=== PATIENT | female | born 2000 | race Caucasian/White ===

== ENCOUNTER 2021-04-23 15:39 | Emergency (ER) | payer OTHER, SELFPAY ==
[2021-04-23 17:25] VITALS: BP 116/82; PULSE 64; RESP 18; TEMP 37; O2SAT 98; BMI 22.6
--- NOTE | 2021-04-23 17:38 | HMH.EDUTC ---
[facility] [place] Disposition Clinical Impression: Exposure to COVID-19 virus Disposition: Home, Self-Care Condition on Discharge: Good Instructions: DI for COVID-19 (Suspected or Confirmed ), Coronavirus Disease 2019, Preventing the Spread of Coronavirus Discharge Instructions Additional Instructions: *Monitor Temp, Over the counter Motrin or Tylenol as directed/as needed Tylenol every 4 hours and Motrin every 6 hours (as long as your family doctor has told you that you can take it) for fever or pain. and straight to ER if unable to lower temp less than 101.0 after medication given Follow up IMMEDIATELY for new or worsening symptoms or no Noticeable improvement over the next 48-72 hours. 911 for difficulty breathing or swallowing You were tested for today for COVID19 your test result should be back in the next 24-48 hours, you may call to the [facility] to see if your test results are back in the next 48 hours [phone] [facility] hours are 9am-9pm You was given a handout with instructions for Self Quarantine and Self isolation for while you wait on test results and what to do if they are positive If you are positive the Health Dept will be contacting you also Make sure to take your Vitamins Vit. C Vit D and Zinc if you can take them Referrals: Provider,Referral, MD [Primary Care Provider] - As needed Forms: Work/School Release Time of Disposition: 17:42 Medical Decision Making - Lucho Inquiry Pt receiving controlled substance: No Lucho was queried for this patient: No Vital Signs: 04/23/21 17:25 Temperature 98.6 F Temperature Source Oral Pulse Rate [Left Radial] 64 Respiratory Rate 18 Blood Pressure [Left Arm] 116/82 Blood Pressure Mean [Left Arm] 93 Blood Pressure Source [Left Arm] Automatic Cuff Blood Pressure Position [Left Arm] Sitting 02 Sat by Pulse Oximetry 98 Oxygen Delivery Method Room Air Orders (Tests/Meds): ORDERS Category Date Time Status Covid-19 Nasal PCR ([facility]) Routine Lab 04/23/21 17:15 Ordered [facility] [place] HPI - General Stated complaint: covid test Time Seen by Provider: 04/23/21 17:38 Mode of Arrival: Ambulatory Source of Information: Patient Limitations: No Limitations Description of Symptoms (Recalled from Triage Doc. by RN): pt requesting a covid test, possibly exposed by a friend, reports headache x2 days HEENT Symptoms (Recalled from RN notes): No Resp Symptoms (Recalled from RN notes): No Skin Symptoms (Recalled from RN notes): No MS Symptoms (Recalled from RN notes): No Functional Status (Recalled from RN notes): n/a - History of Present Illness Provider Complaint: Patient states that she wants to get tested for COVID state that she was around a friend last week that she thinks may have had COVID state that she has been having body aches and headache on and off for a week Denies any other symptoms - Related Data Home Medications Medication Instructions Recorded Confirmed No Known Home Medications 06/28/20 06/28/20 Allergies Allergy/AdvReac Type Severity Reaction Status Date / Time No Known Allergies Allergy Verified 06/28/20 07:02 - Worker's Comp Is this a Worker's Comp case?: No Is this an H Worker's Comp?: No [facility] History - Hepatitis A Screen Drug use history?: No High risk sexual behaviors?: No History of sexually transmitted infection?: No Currently employed?: No Childcare worker?: No Do you have indoor plumbing?: Yes Do you have electricity?: Yes Attestation statement:: This patient has been screened for Hepatitis A risk factors. I have reviewed the patient's past medical history: Yes ROS Obtained: Yes All systems reviewed & no additional complaints, Yes Systems reviewed as appropriate & no additional complaints - Constitutional Constitutional: Reports system reviewed and no additional complaints, except as docu, Reports body ache, Denies fever(s), Reports headache(s) - Eyes Eyes: Reports system reviewed and no additional complaints, except as
[2021-04-23 17:49] VITALS: BP 0/0; PULSE 0; RESP 0; TEMP -17.7; TEMP 0
--- NOTE | 2021-04-24 20:06 | PC.NURSE ---
Patient aware of positive COVID result
== END 2021-04-23 17:57 | disposition home or self-care (01) ==
PROVIDERS: Emergency Provider Nurse Practitioner
DX: U07.1 COVID-19 (principal)
CPT/HCPCS: 99202; G0463; U0003

== ENCOUNTER → 2021-11-05 14:21 | Outpatient (CLI) | payer OTHER, SELFPAY ==
--- NOTE | 2021-11-05 14:21 | US_ITS ---
FINAL REPORT CLINICAL HISTORY: US OB Before 14 wks for DATES and Confirmation FINDINGS: Sonographic images of the pelvis were obtained. A single, living intrauterine is noted. A yolk sac is present. [place] to rump length measures 4.6 cm which corresponds to 11 weeks 3 days gestation. Heartbeat is identified and measures 167 beats per minute. The right ovary is within normal limits. The left ovary is within normal limits. 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 IMPRESSION: Single, living, intrauterine gestation with 14 weeks 6 days gestational age and average ultrasound age of 11 weeks 4 days. 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 Reviewed, Interpreted and Dictated by Tom Bustamante III, MD Transcribed by Claribel Roth Authenticated by Tom Bustamante III, MD on 11/05/2021 04:49:08 PM [facility]
== END ==
PROVIDERS: PCP Emergency Medicine; Visit Provider Nurse Practitioner Obstetrics & Gynecology
DX: O26.841 Uterine size-date discrepancy, first trimester (principal)
CPT/HCPCS: 76801

== ENCOUNTER → 2021-11-27 10:03 | Outpatient (CLI) | payer OTHER, SELFPAY ==
[2021-11-27 11:41] LABS: Basophils # 0.1 K/mm3 (0-0.2); Basophils % 0.6 % (0.1-2.0); Eosinophils # 0.2 K/mm3 (0.0-0.4); Eosinophils % 2.6 % (0.1-12.0); Hematocrit 35.6 % (37.0-47.0); Hemoglobin 11.9 g/dL (12.2-16.2); Lymphocytes # 1.8 K/mm3 (0.7-4.5); Lymphocytes % 20.9 % (10-50); Mean Corpuscular HGB Conc 33.5 g/dL (31.8-35.4); Mean Corpuscular Hemoglobin 31.7 pg (27.0-31.2); Mean Corpuscular Volume 94.6 fl (81-99); Mean Platelet Volume 8.2 fl (7.4-10.4); Monocytes # 0.4 K/mm3 (0.1-1.0); Monocytes % 4.4 % (1.7-9.3); Neutrophils # 6.1 K/mm3 (1.8-7.8); Neutrophils % 71.5 % (37.0-80.0); Platelet Count 277 K/mm3 (142-424); Red Blood Count 3.76 M/mm3 (4.20-5.40); Red Cell Distribution Width 13.7 % (11.5-17.5); White Blood Count 8.5 K/mm3 (4.8-10.8)
[2021-11-28 06:13] LABS: HIV Screen 4th Generation wRfx Non Reactive (Non Reactive)
[2021-11-28 07:14] LABS: Hepatitis B Surface Antigen Negative (Negative); Hepatitis C Antibody <0.1 s/co ratio (0.0-0.9)
[2021-11-28 08:24] LABS: HSV 2 IgG, Type Spec <0.91 index (0.00-0.90); Rubella Antibodies, IgG 1.22 index (Immune >0.99)
[2021-11-28 11:34] LABS: Rapid Plasma Reagin Ab Titer Non Reactive (NonRea<1:1)
== END ==
PROVIDERS: PCP Emergency Medicine; Visit Provider Nurse Practitioner Obstetrics & Gynecology
DX: Z34.90 Encounter for supervision of normal pregnancy, unspecified, unspecified trimester (principal)
CPT/HCPCS: 36415; 85025; 86592; 86695; 86703; 86762; 86790; 86850; 87340; 87380; G0432

== ENCOUNTER → 2021-12-09 13:04 | Outpatient (CLI) | payer OTHER, SELFPAY | PROVIDERS: Visit Provider Nurse Practitioner Obstetrics & Gynecology | DX: Z31.430 Encounter of female for testing for genetic disease carrier status for procreative management (principal); Z36.0 Encounter for antenatal screening for chromosomal anomalies; O28.3 Abnormal ultrasonic finding on antenatal screening of mother | CPT/HCPCS: 36415 ==

== ENCOUNTER → 2022-01-08 09:18 | Outpatient (CLI) | payer OTHER, SELFPAY ==
--- NOTE | 2022-01-08 09:18 | US_ITS ---
FINAL REPORT CLINICAL HISTORY: OB US Complete 20wk+ Anatomy Scan FINDINGS: There is a single live intrauterine gestation. Presentation is cephalic. The cervix is closed and measures 3 cm. Placenta is anterior, grade 1. movement is noted. Heart rate is measured at 143 beats per minute. Three-vessel cord with satisfactory umbilical cord insertion. Four-chamber heart is noted. brain and ventricles are unremarkable. Chest and diaphragm are unremarkable. ABDOMEN: Both kidneys are unremarkable. Stomach is unremarkable. SPINE: No anomalies identified. AMNIOTIC FLUID: Appropriate amount. MEASUREMENTS: ULTRASOUND AGE: 20 weeks 5 days. GESTATION AGE: 20 weeks 5 days. ESTIMATED WEIGHT: 362 g GROWTH PERCENTILE: 36% BPD: 5 cm corresponding to 21 weeks 2 days. OFD: 6.1 cm corresponding to 20 weeks 5 days. HC: 17.6 cm corresponding to 20 weeks 1 days. AC: 15.7 cm corresponding to 21 weeks 0 days. FL: 3.3 cm corresponding to 20 weeks 2 days. CEREBELLUM: 2.1 cm corresponding to 21 weeks 2 days. HUMERUS: 3.1 cm corresponding to 20 weeks 4 days. HC/AC: 1.12 CI: 82% FL/BPD: 65% FL/AC: 21% IMPRESSION: Single living IUP with an ultrasound age of 20 weeks 5 days. No anomalies noted. Reviewed, Interpreted and Dictated by Tom Bustamante III, MD Transcribed by Denise Barron Authenticated by Tom Bustamante III, MD on 01/08/2022 01:23:49 PM [facility]
== END ==
PROVIDERS: PCP Emergency Medicine; Visit Provider Nurse Practitioner Obstetrics & Gynecology
DX: Z36.0 Encounter for antenatal screening for chromosomal anomalies (principal)
CPT/HCPCS: 76811

== ENCOUNTER → 2022-04-23 09:54 | Outpatient (CLI) | payer OTHER, SELFPAY ==
[2022-04-23 11:04] LABS: Glucose,Fasting 83 mg/dl (74-100)
[2022-04-23 12:19] LABS: Glucose 1 Hour 83 mg/dL (74-100)
== END ==
PROVIDERS: Nurse Practitioner Obstetrics & Gynecology; PCP Emergency Medicine; Visit Provider Obstetrics & Gynecology
DX: Z34.90 Encounter for supervision of normal pregnancy, unspecified, unspecified trimester (principal); Z3A.24 24 weeks gestation of pregnancy
CPT/HCPCS: 36415; 82951

== ENCOUNTER → 2022-04-27 13:16 | Outpatient (CLI) | payer OTHER, SELFPAY ==
--- NOTE | 2022-04-27 13:19 | US_ITS ---
FINAL REPORT CLINICAL HISTORY: sga FINDINGS: There is a single live intrauterine gestation. Presentation is cephalic. Placenta is fundal/left lateral grade 2. movement is noted. Amniotic fluid measures 11 cm which is normal. Heart rate is detected at 155 beats per minute. MEASUREMENTS: ULTRASOUND AGE: 34 weeks 2 days. GESTATION AGE: 34 weeks 2 days. ESTIMATED WEIGHT: 2374 g GROWTH PERCENTILE: LMP percentile 9 % BPD: 8.50 cm corresponding to 34 weeks 2 days. OFD: 10.72 cm corresponding to 34 weeks 1 day. HC: 30.4 cm corresponding to 33 weeks 6 days. AC: 30.3 cm corresponding to 34 weeks 2 days. FL: 6.65 cm corresponding to 34 weeks days. HC/AC: 0.00 CI: 79% FL/BPD: 78% FL/AC: 22% Biophysical profile score: Breathin Movement: 2 Tone: 2 Fluid volume: 2 Biophysical profile score is 8/8 IMPRESSION: Single living IUP with an ultrasound age of 34 weeks 2 days. Biophysical profile score is 8/8. Reviewed, Interpreted and Dictated by Tom Bustamante III, MD Transcribed by Doreen Clemons Authenticated and [facility]
== END ==
PROVIDERS: PCP Emergency Medicine; Visit Provider Nurse Practitioner Obstetrics & Gynecology
DX: O36.5990 Maternal care for other known or suspected poor fetal growth, unspecified trimester, not applicable or unspecified (principal)
CPT/HCPCS: 76816; 76819; 76820

== ENCOUNTER → 2022-04-28 06:24 | Outpatient (CLI) | payer OTHER, SELFPAY | PROVIDERS: Visit Provider Nurse Practitioner Obstetrics & Gynecology | DX: Z34.90 Encounter for supervision of normal pregnancy, unspecified, unspecified trimester (principal); Z3A.35 35 weeks gestation of pregnancy | CPT/HCPCS: 86403 ==

== ENCOUNTER 2022-05-11 05:16 | Inpatient (IN) | payer OTHER, SELFPAY ==
[2022-05-11] VITALS (47 sets, daily range): BP systolic 50–178; BP diastolic 27–124; PULSE 55–169; RESP 16–20; TEMP 35.9–43; O2SAT 96–100; BMI 26.9
[2022-05-11 06:07] LABS: Microscopic, Urine URINE MICROSCOPIC (MICROSCOPIC)
[2022-05-11 06:07] LABS: Coronavirus 19, PCR Not Detected (NotDetected); Influenza A, PCR Not Detected (NotDetected); Influenza B, PCR Not Detected (NotDetected)
[2022-05-11 06:16] LABS: Appearance,Urine CLEAR (Clear); Bilirubin,Urine Negative (Negative); Blood, Urine Negative (Negative); Color,Urine YELLOW (Yellow); Glucose,Urine (UA) Negative (Negative); Ketones,Urine Negative (Negative); Leukocyte Esterase,Urine 3+ (Negative); Nitrate,Urine Negative (Negative); Protein,Urine Negative (Negative); Specific Gravity, Urine 1.015 (1.005-1.030); Urobilinogen,Urine 0.2 EU/dl (0.2)
[2022-05-11 06:16] LABS: Basophils # 0.1 K/mm3 (0-0.2); Basophils % 0.9 % (0.1-2.0); Eosinophils # 0.2 K/mm3 (0.0-0.4); Eosinophils % 1.6 % (0.1-12.0); Hematocrit 36.9 % (37.0-47.0); Lymphocytes # 2.6 K/mm3 (0.7-4.5); Lymphocytes % 22.5 % (10-50); Mean Corpuscular HGB Conc 32.5 g/dL (31.8-35.4); Mean Corpuscular Hemoglobin 32.4 pg (27.0-31.2); Mean Corpuscular Volume 99.7 fl (81-99); Mean Platelet Volume 8.4 fl (7.4-10.4); Monocytes # 0.7 K/mm3 (0.1-1.0); Neutrophils # 7.9 K/mm3 (1.8-7.8); Neutrophils % 69.1 % (37.0-80.0); Platelet Count 243 K/mm3 (142-424); Red Cell Distribution Width 13.7 % (11.5-17.5); White Blood Count 11.4 K/mm3 (4.8-10.8)
[2022-05-11 06:45] LABS: Bacteria,Urine Trace /lpf
[2022-05-11 06:56] LABS: Amphetamine/Metha Screen,Urine Negative ng/ml (<1000)
[2022-05-11 06:57] LABS: Barbiturates Screen,Urine Negative ng/ml (<200); Benzodiazepines Screen,Urine Negative ng/ml (<200)
[2022-05-11 07:02] LABS: Methadone Screen,Urine Negative ng/ml (<300)
[2022-05-11 07:03] LABS: Cannabinoid Screen,Urine Negative ng/ml (<50); Cocaine Screen,Urine Negative ng/ml (<300)
[2022-05-11 07:04] LABS: Opiate Screen,Urine Negative ng/ml (<300); Phencyclidine Screen,Urine Negative ng/ml (<25)
--- NOTE | 2022-05-11 08:34 | EXP.HP ---
History of Present Illness *Admission Date: 05/11/22 *Reason for visit:: Term , IUGR *History of present illness: She is a 22-year-old 4 para 2 aborta 1 who is 38+ weeks gestational age. She was seen last week and ultrasound showed that the baby was less than the 10th centile. As result of that we elected to induce her labor at 38 weeks. PFSH PFS Surgical History (Updated 05/11/22 @ 08:37 by Lizbet Sosa RN) Hx of dilation and curettage Social History Smoking Status: Current every day smoker tobacco type: cigarettes alcohol intake: current substance use type: marijuana current occupational status: employed Travel in the last 8 weeks: None Review of Systems Review of Systems Review of systems:: pertinent systems reviewed and negative unless documented below Meds Home Medications and Allergies Home Medications Medication Instructions Recorded Confirmed Type ferrous sulfate 325 mg (65 mg 325 mg PO DAILY Supplement 05/11/22 05/11/22 History iron) tablet prenat.vits,anshul,bjz-jlkh-plwtt 1 tab PO DAILY Supplement 05/11/22 05/11/22 History New Prescriptions to Start Prescriptions: Allergies Allergy/AdvReac Type Severity Reaction Status Date / Time No Known Allergies Allergy Verified 05/06/22 10:00 Exam Data for Last 24 hours Vital signs and Labs for Last 24 Hours: Temp Pulse Resp BP Pulse Ox 97.8 F 74 16 111/71 97 05/11/22 07:32 05/11/22 07:32 05/11/22 07:32 05/11/22 07:32 05/11/22 07:32 Laboratory Results - last 24 hr 05/11/22 05:45: Urine Color Yellow, Urine Appearance Clear, Urine pH 7.0, Ur Specific [place] 1.015, Urine Protein Negative, Urine Glucose (UA) Negative, Urine Ketones Negative, Urine Blood Negative, Urine Nitrate Negative, Urine Bilirubin Negative, Urine Urobilinogen 0.2, Ur Leukocyte Esterase 3+ A, Urine RBC None, Urine WBC 3-5, Ur Squamous Epith Cells 3-5, Urine Bacteria Trace 05/11/22 05:45: Urine Opiates Screen Negative, Urine Methadone Screen Negative, Ur Barbituates Screen Negative, Ur Phencyclidine Scrn Negative, Ur Amphetamines Screen Negative, U Benzodiazepines Scrn Negative, Urine Cocaine Screen Negative, U Marijuana (THC) Screen Negative 05/11/22 05:50: SARS-CoV-2 (PCR) Not detected, Influenza A Untype (PCR) Not detected, Influenza Type B (PCR) Not detected 05/11/22 05:55: WBC 11.4 H, RBC 3.70 L, Hgb 12.0 L, Hct 36.9 L, MCV 99.7 H, MCH 32.4 H, MCHC 32.5, RDW 13.7, Plt Count 243, MPV 8.4, Neut % (Auto) 69.1, Lymph % (Auto) 22.5, Bartholomew % (Auto) 6.0, Eos % (Auto) 1.6, Baso % (Auto) 0.9, Neut # (Auto) 7.9 H, Lymph # (Auto) 2.6, Bartholomew # (Auto) 0.7, Eos # (Auto) 0.2, Baso # (Auto) 0.1 05/11/22 05:55: Blood Type A Positive, Antibody Screen Negative I & O for Last 24 hours: Intake & Output 05/08/22 05/09/22 05/10/22 05/11/22 11:59 11:59 11:59 11:59 Weight 152 lb Constitutional Constitutional: no acute distress *Routine HEENT Exam Head: Present normocephalic Eye: Present EOMI and PERRL ENT: Present mucous membranes moist *Routine Neck Exam Neck: Present supple and full ROM *Routine Respiratory Exam Respiratory: Absent accessory muscle use (good air entry bilaterally), wheezes or crackles *Routine Cardiovascular Exam Cardiovascular: Present RRR; Absent murmur *Routine Abdominal Exam Abdominal: Present soft and normoactive bowel sounds; Absent tenderness, rebound, guarding or mass *Routine Rectal Exam Rectal:: deferred *Routine Genitalia Exam Genitalia:: normal female Comment:: Cervix is 3 cm 75% -2 *Routine Extremities Exam Extremities: Present full ROM; Absent cyanosis, edema or calf tenderness *Routine Skin Exam Skin: Present intact (good color) *Routine Neurological Exam Neurological: Present alert and oriented X3 Routine Psychiatric Exam Psychiatric: Present normal affect Detailed Rectal Exam Patient deferred: visual exam and digital exam Detailed Exam Patie
--- NOTE | 2022-05-11 08:37 | EXP.LABOR.NO ---
Labor Note Subjective: Date: 05/11/22 Time: 08:37 regular contraction Objective: NST:: Reactive Contractions:: every 2-3 minutes Cervical Dilation:: 3 Effacement:: 75% Station: -2 Membranes: artificially ruptured Comment:: I ruptured her membranes and there is clear fluid. Fetus: Monitoring?: Yes monitoring type:: Internal and External Comment:: I inserted an IUPC. Assessment: Labor progressing?: Yes Cephalopelvic disproportion?: No All Active Problems (Updated 05/06/22 @ 11:16 by Cesar Pride MD) (Acute) Asthma (Acute) Tobacco use (Acute) IUGR (intrauterine growth restriction) affecting care of mother (Acute) Oligohydramnios antepartum (Acute) Plan: Anesthesia for epidural?: Yes Continue to labor down?: Yes Plan for ?: No Continue to monitor?: Yes Start pushing?: No
--- NOTE | 2022-05-11 09:18 | ECG_ITS ---
APPROVED REPORT Exam: Resting ECG HR:62 bpm ECG Measurements Heart Rate 62 AXES MA 187 P 55 QRSd 89 QRS 75 QT 415 T 64 QTc 419 Conclusion SINUS RHYTHM MODERATE ST DEPRESSION [0.05+ mV ST DEPRESSION] ABNORMAL ECG UNCONFIRMED REPORT Electronically signed by : Darius Knapp MD 05/11/2022 22:34:43
--- NOTE | 2022-05-11 11:01 | EXP.DN ---
Delivery Note Delivery Date:: 05/11/22 Delivery Time:: 10:53 Anesthesia Type: Epidural Was labor medically induced?: Yes Induction method: per pitocin protocol Gestational age (weeks): 38 delivered prior to 39 weeks?: Yes Justification for early elective delivery:: IUGR and Oligohydraminos Gender: Female at 1 minute: 7 at 5 minutes: 9 Delivery Procedure:: She is a 22-year-old 3 para 2 who was 38 weeks gestational age with a small for gestational age . As result of that she is brought in for induction of labor at term. She was started on IV oxytocin had her membranes ruptured. Under labor epidural she progressed to full dilation. She delivered with the assistance of a vacuum a liveborn female child at 10:53 AM in the morning of May 11, 2022. She was having some prolonged deceleration so elected to place a vacuum on the baby's head. Using 1 long gentle pull I was able to easily deliver the head. There were no nuchal cords. The anterior shoulder then delivered easily followed by the rest of the infant's body atraumatically. The baby was vigorous. We allowed the cord to continue to pulsate for approximately 1 minute. The cord is then doubly clamped and cut and the was placed on the mother's abdomen for further care. The nurses assigned Apgars of 7 at 1 minute and 9 at 5 minutes. We then obtained cord blood. I attempted to deliver the cord and it was extremely thin and tore. There were no vaginal or perineal lacerations. She received IV oxytocin and we waited the delivery of the placenta. I will dictate the rest of the delivery of the placenta and case history in my operative note. Placental Delivery Description: Placenta Accreta
--- NOTE | 2022-05-11 12:07 | ECG_ITS ---
APPROVED REPORT Exam: Resting ECG HR:121 bpm ECG Measurements Heart Rate 121 AXES [place] 162 P 53 QRSd 70 QRS 77 QT 295 T 94 QTc 367 Conclusion SINUS TACHYCARDIA LOW QRS VOLTAGE IN PRECORDIAL LEADS [QRS DEFLECTION < 1.0 mV IN CHEST LEADS] MINIMAL ST DEPRESSION [0.025+ mV ST DEPRESSION] ABNORMAL RHYTHM ECG INTERPRETATION BASED ON A DEFAULT AGE OF 40 YEARS UNCONFIRMED REPORT Electronically signed by : Darius Knapp MD 05/11/2022 22:34:19
[2022-05-11 12:19] LABS: Hematocrit 36.3 % (37.0-47.0); Hemoglobin 11.8 g/dL (12.2-16.2)
--- NOTE | 2022-05-11 12:49 | EXP.ANES.CKL ---
[facility] Surgical History (Updated 05/11/22 @ 08:37 by Lizbet Sosa RN) Hx of dilation and curettage Social History (Updated 05/11/22 @ 08:39 by Lizbet Sosa RN) Smoking Status: Current every day smoker tobacco type: cigarettes packs per day: 1 alcohol intake: current substance use type: marijuana current occupational status: employed Travel in the last 8 weeks: None [facility] Anesthesia Checklist Patient Identification Patient Identification: Verbal (Name & ) Structural Data Admitted From: Inpatient Planned Operative Procedure/s: labor epidural Consent for Planned Operative Procedure(s) Verified: Yes Airway Assessment C-Spine Mobility Assessed: Yes TMJ Mobility Assessed: Yes Dentition: Poor Dentition Neurological Assessment Level of Consciousness: Awake, Alert and Appropriate Anesthesia Plan Anesthesia Risk discussed: Yes Anesthesia Plan: Verified ASA Class: II Anesthesia Type: Epidural
--- NOTE | 2022-05-11 13:13 | EXP.CARD.CON ---
History of Present Illness History of Present Illness Consult date: 05/11/22 Requesting physician: Cesar Pride Chief complaint: Post shoulder pain, abnormal EKG, Hypotension Additional Medical History:: 1. Tobacco use 2. Use of marijuana 3. 4, para 3 abor 1 History of present illness: 22-year-old white female with history of oligohydramnios antepartum presented for planned induction and delivery with delivery of healthy baby girl. Patient developed left shoulder discomfort along with hypotension prompting call to cardiology for evaluation of abnormal EKG. Blood pressure upon arrival was noted to be in the 80-90 mmHg systolic range with bedside echo performed by ER MD showing preserved ejection fraction with flattening of the interventricular septum. Central line in the right femoral artery was placed for additional IV access. Copious IV fluids along with 4 units of blood were infused rapidly with IV atropine, IV Lobo-Synephrine for blood pressure support. Blood pressure was stabilized with hemoglobin noted to have risen from 8.1-11 after the 4 units of blood. Blood pressure then again began to drop again and decision was made to take patient to surgery for further evaluation. Placenta was noted to still be inside the uterus. Oxygen saturation remained normal throughout the events noted above. Dr. Echeverria, Dr. Pride and ER MD ( Jni Godo MD) were present and attending to patient. Please see notes for rapid response. [facility] Surgical History (Updated 05/11/22 @ 08:37 by Lizbet Sosa RN) Hx of dilation and curettage Social History (Updated 05/11/22 @ 08:39 by Lizbet Sosa RN) Smoking Status: Current every day smoker tobacco type: cigarettes packs per day: 1 alcohol intake: current substance use type: marijuana current occupational status: employed Travel in the last 8 weeks: None Review of Systems Review of Systems Review of systems:: unable to obtain Exam Data for Last 24 hours Vital signs and Labs for Last 24 Hours: Temp Pulse Resp BP Pulse Ox 97.8 F 74 16 111/71 97 05/11/22 07:32 05/11/22 07:32 05/11/22 07:32 05/11/22 07:32 05/11/22 07:32 Laboratory Results - last 24 hr 05/11/22 05:45: Urine Color Yellow, Urine Appearance Clear, Urine pH 7.0, Ur Specific [place] 1.015, Urine Protein Negative, Urine Glucose (UA) Negative, Urine Ketones Negative, Urine Blood Negative, Urine Nitrate Negative, Urine Bilirubin Negative, Urine Urobilinogen 0.2, Ur Leukocyte Esterase 3+ A, Urine RBC None, Urine WBC 3-5, Ur Squamous Epith Cells 3-5, Urine Bacteria Trace 05/11/22 05:45: Urine Opiates Screen Negative, Urine Methadone Screen Negative, Ur Barbituates Screen Negative, Ur Phencyclidine Scrn Negative, Ur Amphetamines Screen Negative, U Benzodiazepines Scrn Negative, Urine Cocaine Screen Negative, U Marijuana (THC) Screen Negative 05/11/22 05:50: SARS-CoV-2 (PCR) Not detected, Influenza A Untype (PCR) Not detected, Influenza Type B (PCR) Not detected 05/11/22 05:55: WBC 11.4 H, RBC 3.70 L, Hgb 12.0 L, Hct 36.9 L, MCV 99.7 H, MCH 32.4 H, MCHC 32.5, RDW 13.7, Plt Count 243, MPV 8.4, Neut % (Auto) 69.1, Lymph % (Auto) 22.5, [place] % (Auto) 6.0, Eos % (Auto) 1.6, Baso % (Auto) 0.9, Neut # (Auto) 7.9 H, Lymph # (Auto) 2.6, [place] # (Auto) 0.7, Eos # (Auto) 0.2, Baso # (Auto) 0.1 05/11/22 05:55: Blood Type A Positive, Antibody Screen Negative, Crossmatch (AHG) See Detail 05/11/22 12:12: Hgb 11.8 L, Hct 36.3 L I & O for Last 24 hours: Intake & Output 05/09/22 05/10/22 05/11/22 05/12/22 11:59 11:59 11:59 11:59 Weight 152 lb Constitutional Constitutional: somnolent *Routine Respiratory Exam Respiratory: Present decreased breath sounds *Routine Cardiovascular Exam Cardiovascular: Present RRR and tachycardia *Routine Abdominal Exam Abdominal: Present distended *Routine Neurological Exam Comments: minimally alert initially with decline during hypotensive episodes. Meds
--- NOTE | 2022-05-11 13:34 | XR_ITS ---
FINAL REPORT CLINICAL HISTORY: R/O FOREIGN BODY FINDINGS: SINGLE VIEW ABDOMEN A single view of the abdomen was obtained. There is a nonobstructive bowel gas pattern. There are no abnormally dilated loops of small bowel. No abnormal calcifications are identified. A presumed right femoral deep line and bladder catheter present. IMPRESSION: Nonobstructive bowel gas pattern. Presumed right femoral deep line and bladder catheter in place. Otherwise, no foreign body identified. Reviewed, Interpreted and Dictated by Tom Bustamante III, MD Transcribed by Hattie Elaine Authenticated and [facility]
--- NOTE | 2022-05-11 14:13 | EXP.OP.NOTE ---
Date of procedure: 05/11/22 Pre-op Diagnosis:: Intra-abdominal bleeding Post-op Diagnosis:: Bicornuate uterus, placenta accreta, bleeding from uterine cornua Procedure performed:: Exploratory laparotomy, total abdominal hysterectomy Surgeon:: Cesar Pride MD Hangersmith(s):: Dr. Benson LICENSED ACUPUNCTURIST:: Galo Whiting Anesthesia: GETA Estimated blood loss (mL): 3,500 Clinical Note:: She is a 22-year-old 3 para 2 who is . She delivered and we were awaiting the placenta to deliver. I could not feel the placenta when I examined her from the vagina.. The cord had torn off from the placenta. The cord itself was extremely small and thin. She then had an episode of low blood pressure and responded to fluids. She subsequently then began to keep her blood pressure low and did not respond to fluids. We had Dr. Echeverria come up from the [facility] as well as our ER doc. At that time it was not clear whether she had a possible pulmonary embolus, amniotic fluid embolus or intra-abdominal bleeding. We initially did an abdominal ultrasound and could not see any fluid in the abdominal cavity. We also looked up around the liver and there was no fluid. Her initial hemoglobin was 11.1 and post it was 8.1. She had received a considerable amount of IV fluids and we were not sure whether this was active bleeding internally or possibly hemodilution. She continued to be observed we gave her a total of 4 units of blood and we then repeated her ultrasound and it showed that there was fluid in the abdominal cavity as well as fluid up around her liver. Her posttransfusion hemoglobin was 11.1. As result of the abdominal fluid and suspicion of abdominal bleeding we took her to the operating room for an exploratory laparotomy. During the period we were monitoring her blood pressures, we had an EKG that showed some possible ST changes but Dr. Echeverria felt that it was not abnormal.. She really did not respond with tachycardia with her drop in blood pressure. Her heart rate in fact remained in the 50s and 60s despite the fact that her blood pressure was in the 60s to 80s over 40s to 50s. As result of the continued low blood pressure and the fact that we felt that there was suspected internal bleeding we took her to the operating room for a exploratory laparotomy. I discussed this with her mother prior to the surgery. Operative findings:: She had about 3 L of blood in her belly when we initially went into the abdominal cavity. The uterus was bicornuate and the left side of the horn was completely open at the top of the horn. It looked like there was an accreta or possibly percreta with active bleeding from that particular area of the uterine serosa. The opening at the top of the horn was approximately 10 cm across and there was no serosa covering this. The placenta was visible protruding through the serosa of the uterus. The placenta was in that horn. The ovaries and tubes appeared normal. The rest of the abdomen and pelvis appeared normal. Operative note:: She was taken the operating room where general anesthesia was found to be adequate. She was prepped draped normal sterile fashion in the supine position. Patsrana catheter is in the bladder. A midline incision was made with knife and carried through to the underlying layer of fascia with cautery. I then opened up the midline fascia with cautery and extended this superiorly inferiorly. The rectus muscle was then midline and the peritoneum identified. This was tented up and entered sharply with Metzenbaum scissors. This incision was then extended superiorly and inferiorly with cautery. There was copious blood in the abdominal cavity and we soaked up this blood with sponges as well as suction. We then exteriorized the uterus and it was found that the left horn of the uterus had completely eroded through with the placenta. It was actively bleeding. As result of this I took a free tie and tied
--- NOTE | 2022-05-11 14:26 | P.PNANES_ITS ---
[facility] Anesthesia Record Part I Anesthesia Record I Intake, IV Amount: 1,500 Estimated blood loss (mL): 3,000 Urine output (mL): 200 Blood Pressure: 102/53 SaO2: 98 Pulse Rate: 78 Respiratory Rate: 16 Temperature: 97.6 F Patient is:: Drowsy and Stable Stable to PACU at:: 14:10
--- NOTE | 2022-05-11 14:40 | SUR.PHASEI ---
R Femoral line discontinued by Jenni Rosario RN and pressure applied x 15 min. Pt doing well. Drowsy but talking about baby. Called to OB to get report on baby and relayed to mom, smiles and tears of macrina.
[2022-05-11 14:43] LABS: Hematocrit 44.5 % (37.0-47.0)
--- NOTE | 2022-05-11 14:45 | PC.NURSE ---
pt doing well. R groin without bleeding, pressure still being held. Denies pain. H and H drawn by lab.
[2022-05-11 14:46] LABS: Hemoglobin 14.6 g/dL (12.2-16.2)
--- NOTE | 2022-05-11 15:00 | SUR.PHASEI ---
Pt to be transferred to ICU stepdown unit. Report called to Lux Alamo RN.
--- NOTE | 2022-05-11 15:04 | SUR.PHASEI ---
Pt stable, discussed with pt that hysterectomy was performed to save her life. Pt acknowledged and shook head and said she understood. Pt transferred to stepdown unit, room 219.
--- NOTE | 2022-05-11 15:04 | SUR.OPER ---
LATE ENTRY 1245- family updated of DR. Rogers plan to do hysterectomy via summer yoli at this time. 1404- radiology confirmed xrays that nothing was seen inside the abdominal cavity, counts confirmed. 1440- central line removed at this time by janusz davis. Femoral artery site held by manual pressure for 10 minutes. Site was soft and no bleeding hematoma/hemorrhage noted. Catheter tip also intact. 4x4 dressings applied, tegaderms overtop and sand bag in place.
--- NOTE | 2022-05-11 15:05 | HMH.PROCNOTE ---
[facility] Procedure Note Date: 05/11/22 Time: 12:00 Procedure Note:: Procedure: 8 indonesian sheath to right femoral artery Indication: Need for IV access Performed by: Chris Echeverria MD Consent: The procedure was performed emergently and permission was implied because of the emergent nature. Procedure summary: Hands were washed prior to starting sterile technique.? A timeout was performed.? Sterile surgical, gown and sterile gloves were used with sterile technique.? The patient was laid supine in the bed.? The right femoralartery/groin was prepped in sterile technique with chlorhexidine and draped in a sterile fashion.? The right femoral artery was identified and 1% lidocaine was used to achieve anesthesia.? The introducer needle was inserted into the right femoral artery and arterial blood flash was noted.? The guide wire was advanced into the introducer needle and once the guidewire was in satisfactory position the femoral catheter was advanced.? The wire was removed and the catheter was secured in place with sutures.? A Tegaderm was used to cover the right femoral catheter.? The patient tolerated the procedure well without any hemodynamic compromise.? At the time of completion of the insertion all of the ports were flushed and aspirated properly.? Estimated blood loss was less than 10 mL. Complications: None
--- NOTE | 2022-05-11 15:19 | SUR.OPER ---
1345- radiology at bedside to take xray to confirm counts for emergency procedure. Dr love confirmed xray at this time, waiting on radiology to confirm before leaving the OR.
--- NOTE | 2022-05-11 17:11 | PC.NURSE ---
Emergent blood transfusion start/stop time: Unit 1 [id number]. Start 11:42. Completed 11:49. Unit 2 [id number]. Start 11:49. Completed 11:55. Unit 3 [id number]. Start 11:55. Completed 12:05. Unit 4 [id number]. Start 12:05. Completed 12:13. Unit 5 [id number] Start 12:13. Completed 12:17.
--- NOTE | 2022-05-11 17:25 | PC.NURSE ---
[address] Pride face to face of pt bp in the low 80's sys.consistently since arrival to unit. pt bp was soft upon arrival this am for induction. per Dr pride pt does not need to be put on jacques at this time. 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 order was also received for CMP for the am labs 0600. order in comp for 2000ml of lr, per dr pride pt does not need those fluids at this time. pt is ok to have LR @ 125 tho. monitor intake and output as well as bp
[2022-05-11 17:52] LABS: Hematocrit 41.7 % (37.0-47.0); Hemoglobin 13.6 g/dL (12.2-16.2)
--- NOTE | 2022-05-11 18:16 | PC.NURSE ---
Rapid Response after at 1103, patient reports left shoulder pain, weak, dizzy; patient is cool too the touch and clamy, pallor/grayish color, patient is hypotensive and bradycardic. 1000ml bolus initiated at this time. 1104- Felt Carbonizer notified of help needed in room 277 STAT. 1107-Bigg notified of STAT presence at bedside. 1109-Bigg at bedside. 1115- 2nd IV initiated at this time and 2nd 1000ml LR bolus hung. Pitocin bolus stopped. 1118- lab at bedside, EKG completed 1119-EKG took to ED MD for interpretation by MAX Mckeon, Juwan's office notified of request by Dr. Pride to speak with someone within the office. 1121-Dr. Pride speaking with SHYLA Garcia regarding patient status. 1122-troponin labs ordered. 1123- ER MD at bedside, accompanied with Jojo Wagoner RN. 1126-Juan Alberto Rogers request copy of EKG. 1128-Verbal orders given for epinephrine gtt 1129-Dr. Echeverria and Juan Alberto Rogers at bedside. 1130-Verbal orders for Atropine (1 AMP) and Epinephrine (1/2 AMP) IV NOW STAT 1131- Atropine 1 AMP given now 1131-Epidural pump off. 1132-3rd 1000 ml bolus hung 1133-Vascular at bedside for echo 1133-Emergent blood ordered. 1134-epidural catheter removed with tip intact. 1135-4mg zofran IV STAT NOW for vomiting per ED MD. 1137- Defib pads placed for cardiac monitoring. 1138-OR called and notified of impending arrival for unknown etiology. 1139-OR calls to report that they are ready and on standby. 1141- V.O for ENZO at 10 mcg/min per ER MD. Pharmacy notified of STAT order. 1141- 18 G RAC placed. 1142- Emergent blood transfusion ordered. 1146-ENZO started at 10 mcg/min 1146-Sterile prep for right femoral central line placed. 1148-ENZO bolus initiated at 360 mcg/min 1149- 2nd unit of blood started 1150- Epinephrine (1/2 AMP) given at this time and flushed. 1152-4mg Zofran given per ER MD orders. 1153-Troponin result negative. 1158-ENZO gtt titrated to 250 mcg/min per ER MD verbal order 1200-ENZO gtt titrated 100 mcg/min 1212- Epinephrine (1/2 AMP) given now STAT 1222-Patient in OR at this time accompanied by multiple staff. Please see prior note regarding emergent blood transfusion
--- NOTE | 2022-05-11 19:31 | PC.NURSE ---
Updated MD Pride on pt BP, urine output and labs. New orders received to give pt 500 ml bolus of LR.
[2022-05-12] VITALS (15 sets, daily range): BP systolic 82–106; BP diastolic 49–72; PULSE 75–121; RESP 15–20; TEMP 36.6–37.3; O2SAT 92–100; BMI 29.2
--- NOTE | 2022-05-12 02:31 | PC.NURSE ---
Pt c/o discomfort to back and shoulder. Also during inspiration. Pt assessed. Abdomen noted to have some distention. Vaginal bleeding has decreased over shift. Pads changed x2 with medium to small amount of blood noted since beginning of shift. Pt states that pain has improved since simethicone and oxycodone. BP remains soft to hypotensive at times. Call light within reach. Family at bedside.
--- NOTE | 2022-05-12 04:20 | PC.NURSE ---
Spoke with MD Pride and updated him on BP, urine output, abdominal distention and discomfort to shoulder, back and abdomen. New orders received to give pt 2000 ml bolus to infuse at 500 ml/hr for 4 hrs.
--- NOTE | 2022-05-12 05:54 | EXP.ACUTE.PN ---
Subjective *Date: 05/12/22 *Time: 05:54 Interval history: She seems to be doing a little better this morning. Her blood pressures have still remained in the 90s over 80s. She has had a couple of episodes where the systolic is in the 70s. Her heart rate is mid 80s to 90. Oxygen saturation on room air is 95%. Her urine output was decreased overnight and I suspect that she is intravascularly dehydrated. I have ordered a 2 L bolus over 4 hours. She has since over the last hour put out about 500 cc. She denies any chest pain or calf tenderness. She denies any shortness of breath. She does have some abdominal pain but she has been given Percocet for this. Medical Exam Vital signs and Labs for Last 24 Hours: Temp Pulse Resp BP Pulse Ox 99.1 F 95 H 18 93/60 L 94 L 05/12/22 03:46 05/12/22 04:00 05/12/22 04:00 05/12/22 04:00 05/12/22 04:00 Laboratory Results - last 24 hr 05/11/22 05:45: Urine Color Yellow, Urine Appearance Clear, Urine pH 7.0, Ur Specific [place] 1.015, Urine Protein Negative, Urine Glucose (UA) Negative, Urine Ketones Negative, Urine Blood Negative, Urine Nitrate Negative, Urine Bilirubin Negative, Urine Urobilinogen 0.2, Ur Leukocyte Esterase 3+ A, Urine RBC None, Urine WBC 3-5, Ur Squamous Epith Cells 3-5, Urine Bacteria Trace 05/11/22 05:45: Urine Opiates Screen Negative, Urine Methadone Screen Negative, Ur Barbituates Screen Negative, Ur Phencyclidine Scrn Negative, Ur Amphetamines Screen Negative, U Benzodiazepines Scrn Negative, Urine Cocaine Screen Negative, U Marijuana (THC) Screen Negative 05/11/22 05:50: SARS-CoV-2 (PCR) Not detected, Influenza A Untype (PCR) Not detected, Influenza Type B (PCR) Not detected 05/11/22 05:55: WBC 11.4 H, RBC 3.70 L, Hgb 12.0 L, Hct 36.9 L, MCV 99.7 H, MCH 32.4 H, MCHC 32.5, RDW 13.7, Plt Count 243, MPV 8.4, Neut % (Auto) 69.1, Lymph % (Auto) 22.5, Vance % (Auto) 6.0, Eos % (Auto) 1.6, Baso % (Auto) 0.9, Neut # (Auto) 7.9 H, Lymph # (Auto) 2.6, Vance # (Auto) 0.7, Eos # (Auto) 0.2, Baso # (Auto) 0.1 05/11/22 05:55: Blood Type A Positive, Antibody Screen Negative, Crossmatch (AHG) See Detail 05/11/22 12:12: Hgb 11.8 L, Hct 36.3 L 05/11/22 14:38: Hgb 14.6 D, Hct 44.5 05/11/22 17:45: Hgb 13.6, Hct 41.7 I & O for Labs for Last 24 Hours: Intake & Output 05/09/22 05/10/22 05/11/22 05/12/22 11:59 11:59 11:59 11:59 Intake Total 5862 / 5862 Output Total 1250 / 1250 Balance 4612 / 4612 Weight 152 lb 165 lb 3.2 oz Head: Present atraumatic and normocephalic Neck: Present normal inspection Respiratory: Present normal respiratory effort and symmetric chest movement; Absent accessory muscle use or decreased breath sounds Cardiac: Present Reg Rate and Rhythm GI: Present soft, distention, tenderness and hypoactive bowel sounds Rectal (female): Present deferred (female): Present deferred Extremities: Present normal inspection; Absent tenderness or calf tenderness Skin: Present intact and warm Comment:: She has good color this morning. Assessment and Plan *Assessment and plan (1) Hypotension after procedure: Status: Acute Category: Medical Code(s): I95.81 - Postprocedural hypotension (2) hemorrhage, condition: Status: Acute Category: Medical Code(s): O72.1 - Other immediate hemorrhage (3) Vacuum extractor delivery, delivered: Status: Acute Category: Medical Code(s): O75.9 - Complication of labor and delivery, unspecified (4) Rupture of uterus after labor: Status: Acute Category: Medical Code(s): O71.1 - Rupture of uterus during labor (5) Placenta accreta: Status: Acute Category: Medical Code(s): O43.219 - Placenta accreta, unspecified trimester (6) Bicornuate uterus during , delivered, current hospitalization: Status: Acute Category: Medical Code(s): O34.00 - Maternal care for unspecified congenital malf
[2022-05-12 06:27] LABS: Basophils # 0.1 K/mm3 (0-0.2); Basophils % 0.5 % (0.1-2.0); Eosinophils # 0.1 K/mm3 (0.0-0.4); Eosinophils % 0.4 % (0.1-12.0); Hematocrit 37.1 % (37.0-47.0); Lymphocytes # 2.4 K/mm3 (0.7-4.5); Lymphocytes % 11.9 % (10-50); Mean Corpuscular HGB Conc 32.7 g/dL (31.8-35.4); Mean Corpuscular Volume 94.9 fl (81-99); Mean Platelet Volume 8.6 fl (7.4-10.4); Monocytes # 1.2 K/mm3 (0.1-1.0); Neutrophils # 16.5 K/mm3 (1.8-7.8); Neutrophils % 81.3 % (37.0-80.0); Platelet Count 185 K/mm3 (142-424); Red Blood Count 3.91 M/mm3 (4.20-5.40); Red Cell Distribution Width 16.2 % (11.5-17.5); White Blood Count 20.3 K/mm3 (4.8-10.8)
[2022-05-12 06:29] LABS: MANUAL DIFFERENTIAL MANUAL DIFFERENTIAL (MANUAL DIFF)
[2022-05-12 06:43] LABS: Alanine Aminotransferase 22 U/L (12-78); Albumin/Globulin Ratio 1.1 (1.1-1.8); Alkaline Phosphatase 89 U/L (38-126); Anion Gap 10.4 mEq/L (5-15); Aspartate Amino Transferase 39 U/L (14-36); Blood Urea Nitrogen 8 mg/dl (7-17); Calcium 7.9 mg/dl (8.4-10.2); Carbon Dioxide 20 mmol/L (22.0-30.0); Chloride 105 mmol/L (98-107); Creatinine Clearance Estimated 171 mL/min (50-200); Estimated Glomerular Filt Rate 123 ml/min (>60); GFR (African American) 149 ML/MIN (>60); Globulin 1.9 g/dL (1.3-3.2); Glucose 91 mg/dl (74-100); Potassium 4.4 mmoL/L (3.5-5.1); Sodium 131 mmol/L (136-145); Total Protein,Serum 3.9 g/dl (6.3-8.2)
[2022-05-12 06:54] LABS: Bilirubin,Total < 0.1 mg/dl (0.2-1.3)
--- NOTE | 2022-05-12 07:18 | EXP.PHA.VTE ---
[facility] Pharmacy VTE Monitoring Patient Demographics Admission date: 05/11/22 Report Date: 05/12/22 Time: 07:19 Patient Allergies No Known Allergies Allergy (Verified 05/06/22 10:00) Height: 1.6 m Weight: 74.933 kg Current Active Problems (Updated 05/12/22 @ 06:00 by Cesar Pride MD) Bicornuate uterus during , delivered, current hospitalization (Acute) Placenta accreta (Acute) Rupture of uterus after labor (Acute) Vacuum extractor delivery, delivered (Acute) hemorrhage, condition (Acute) Abnormal EKG (Acute) Hypotension after procedure (Acute) (Acute) Tobacco use (Acute) IUGR (intrauterine growth restriction) affecting care of mother (Acute) Oligohydramnios antepartum (Acute) VTE Risk Labs: VTE Related Lab Results Hgb 13.6 g/dL (12.2-16.2) 05/11/22 17:45 Hct 37.1 % (37.0-47.0) 05/12/22 05:56 Plt Count 185 K/mm3 (142-424) 05/12/22 05:56 BUN 8 mg/dl (7-17) 05/12/22 05:56 Creatinine 0.60 mg/dl (0.52-1.04) 05/12/22 05:56 Estimated Creat Clear 171 mL/min (50-200) 05/12/22 05:56 Was VTE Risk Assessment Performed: Yes VTE Score: 1 VTE Risk Level: Very Low Risk Prophylaxis VTE Prophylaxis Ordered?: Yes Types of VTE Prophylaxis: IPCS Thigh High Location of Applied Device: Bilateral Lower Extremeties
[2022-05-12 07:40] LABS: Lymphocytes % 16 % (10-50); Monocytes % 4 % (2-9); Neutrophils % 80 % (42-76); Platelet Estimate Normal; RBC Morphology Normal; Total Cells Counted 100
--- NOTE | 2022-05-12 07:44 | EXP.ANES.II ---
[facility] Anesthesia Record Part II Anesthesia Record Part II Discharge Time: 15:05 Destination: Medical Surgical Department PACU nurse assessment reviewed?: Yes Patient Condition:: Good Anesthesia Complications:: None Swallowing reflex intact?: Yes Cyanosis?: No Blood Pressure: 91/49 Pulse Rate: 77 Temperature: 98 F Mental Status: Alert & Oriented Pain level:: 0 Nausea and/or vomitting:: None Intake, IV Amount: 0
[2022-05-12 07:52] LABS: Hemoglobin 12.1 g/dL (12.2-16.2)
[2022-05-12 08:27] LABS: Hematocrit 24.8 % (37.0-47.0)
[2022-05-12 08:28] LABS: Hemoglobin 8.1 g/dL (12.2-16.2)
[2022-05-12 08:29] LABS: Anion Gap 4.5 mEq/L (5-15); Blood Urea Nitrogen 11 mg/dl (7-17); Calcium 7.3 mg/dl (8.4-10.2); Carbon Dioxide 24 mmol/L (22.0-30.0); Chloride 108 mmol/L (98-107); Creatinine Clearance Estimated 171 mL/min (50-200); Estimated Glomerular Filt Rate 123 ml/min (>60); GFR (African American) 149 ML/MIN (>60); Glucose 79 mg/dl (74-100); Potassium 3.5 mmoL/L (3.5-5.1); Sodium 133 mmol/L (136-145); Troponin I < 0.01 ng/ml (0.00-0.034)
--- NOTE | 2022-05-12 09:13 | CT_ITS ---
FINAL REPORT TECHNIQUE: Thin section axial CT images of the orbits were obtained without contrast. Coronal reformatted images were also obtained. This study was performed with techniques to keep radiation doses as low as reasonably achievable, (ALARA). Individualized dose reduction techniques using automated exposure control or adjustment of mA and/or kV according to the patient's size were employed. CLINICAL HISTORY: ? retinal hemorrhage FINDINGS: CT ORBITS WITHOUT CONTRAST The globes are intact. There is no CT evidence of hemorrhage. No intraorbital mass or fluid collection is identified. IMPRESSION: No evidence of orbital hemorrhage. If indicated, MRI may be a more sensitive exam. Reviewed, Interpreted and Dictated by Tom Bustamante III, MD Transcribed by Lola Patel Authenticated and [facility]
--- NOTE | 2022-05-12 09:44 | EXP.CARD.PN ---
Subjective Subjective Date: 05/12/22 Time: 09:00 Principal diagnosis: ruptured uterus Interval history: This is a 22-year-old female who had a planned induction delivery of a healthy baby girl yesterday. Following her delivery she developed sudden onset of left shoulder discomfort and hypotension as well as an abnormal EKG. Cardiology did respond once they were called due to these changes following delivery. The patient was having hypokalemia and her hemoglobin dropped down to 8.1. She was given 4 units of blood and then taken to the emergency surgery where she was found to have a ruptured uterus. The patient did undergo hysterectomy yesterday. Today the patient is on room air. She is complaining of abdominal pain from her abdominal incision. She denies any chest pain or shortness of breath. She denies any fever or chills. She denies any nausea, vomiting, diarrhea, PND or orthopnea. She denies any edema. The patient is neurologically intact today and is able to follow all of my commands. Exam Data for Last 24 hours Vital signs and Labs for Last 24 Hours: Temp Pulse Resp BP Pulse Ox 98 F 77 15 91/49 L 94 L 05/12/22 07:46 05/12/22 07:46 05/12/22 06:00 05/12/22 07:46 05/12/22 06:00 Laboratory Results - last 24 hr 05/11/22 05:55: Blood Type A Positive, Antibody Screen Negative, Crossmatch (AHG) See Detail 05/11/22 11:20: Hgb 8.1 L D, Hct 24.8 L 05/11/22 11:20: Sodium 133 L, Potassium 3.5, Chloride 108 H, Carbon Dioxide 24, Anion Gap 4.5 L, BUN 11, Creatinine 0.60, Estimated Creat Clear 171, Estimated GFR 123, Est GFR ( Amer) 149, Glucose 79, Calcium 7.3 L, Troponin I < 0.01 05/11/22 12:12: Hgb 11.8 L D, Hct 36.3 L 05/11/22 14:38: Hgb 14.6 D, Hct 44.5 05/11/22 17:45: Hgb 13.6, Hct 41.7 05/12/22 05:56: WBC 20.3 H* D, RBC 3.91 L, Hgb 12.1 L D, Hct 37.1, MCV 94.9, MCH 31.0, MCHC 32.7, RDW 16.2, Plt Count 185, MPV 8.6, Neut % (Auto) 81.3 H, Lymph % (Auto) 11.9, [place]uckolls % (Auto) 6.0, Eos % (Auto) 0.4, Baso % (Auto) 0.5, Neut # (Auto) 16.5 H, Lymph # (Auto) 2.4, [place]uckoll[place] # (Auto) 1.2 H, Eos # (Auto) 0.1, Baso # (Auto) 0.1, Total Counted 100, Neutrophils % (Manual) 80 H, Lymphocytes % (Manual) 16, Monocytes % (Manual) 4, Platelet Estimate Normal, RBC Morphology Normal 05/12/22 05:56: Sodium 131 L, Potassium 4.4 D, Chloride 105, Carbon Dioxide 20 L, Anion Gap 10.4, BUN 8 D, Creatinine 0.60, Estimated Creat Clear 171, Estimated GFR 123, Est GFR ( Amer) 149, Glucose 91, Calcium 7.9 L, Total Bilirubin < 0.1 L, AST 39 H, ALT 22, Alkaline Phosphatase 89, Total Protein 3.9 L, Albumin 2.0 L, Globulin 1.9, Albumin/Globulin Ratio 1.1 I & O for Last 24 hours: Intake & Output 05/09/22 05/10/22 05/11/22 05/12/22 23:59 23:59 23:59 23:59 Intake Total 1620 / 1620 4242 / 4242 Output Total 500 / 500 750 / 750 Balance 1120 / 1120 3492 / 3492 Weight 152 lb 165 lb 3.2 oz Microbiology Reports for the Last 24 Hours: Microbiology 05/11/22 05:45 Urine,Clean Catch Urine Culture - Preliminary Constitutional Constitutional: no acute distress and average body habitus *Routine HEENT Exam Head: Present normocephalic and atraumatic ENT: Present mucous membranes moist *Routine Neck Exam Neck: Present supple, full ROM and normal carotid upstroke; Absent JVD, carotid bruit or lymphadenopathy *Routine Respiratory Exam Respiratory: Present CTA bilaterally, normal respiratory effort, able to speak in complete sentences and symmetric chest movement *Routine Cardiovascular Exam Cardiovascular: Present RRR, Normal S1 and Normal S2; Absent murmur or gallop *Routine Abdominal Exam Abdominal: Present soft, normoactive bowel sounds, tenderness and other (Surgical wounds/dressing noted); Absent distended or organomegaly *Routine Extremities Exam Extremities: Present full ROM, pulses intact and normal capillary refill; Absent cyanosis, clubbing or edema *Routine Skin Exam Skin: Present intact and warm; Absent erythema *Routine Neurological Exam N
--- NOTE | 2022-05-12 11:30 | PC.NURSE ---
0810: Dr Pride called to check on pt. notified him that during assessment pt was complaining about still having a floater in her left eye. it was also noted that the pt abdomen is more distended than previous dayshift. per Dr Pride, consult Dr Dove (pt PCP) about floater in eye. md states he feels the swelling in abd is related to her having not passed gas yet. notified md that pt is receiving simethicone from oct.
--- NOTE | 2022-05-12 11:42 | PC.NURSE ---
assisted with transporting patient down for CT at 1000. patient tolerated transport and transfers too and from ct table well. some complaints of shoulder pain with laying flat and upon movement back to chair stated she had no more pain. no questions or concerns at this time. arrived back to [facility] in stable condition. apple juice given per her request. encouraged her to ring out with any needs or concerns.
--- NOTE | 2022-05-12 12:20 | EXP.MED.CON ---
History of Present Illness *Admission Date: 05/11/22 *Reason for visit:: Vision Loss *History of present illness: 22 YOF resting quietly in bed, she reports seeing a yellow floater in L eye yesterday that increased slightly in size during day. When she awakened this AM she reports loss of vision in L eye. She denies any pain. Blood is visualized in L eye during exam w/ ophthalmoscope. PFSH PFSH Surgical History (Updated 05/11/22 @ 08:37 by Lizbet Sosa RN) Hx of dilation and curettage Social History (Updated 05/11/22 @ 08:39 by Lizbet Sosa RN) Smoking Status: Current every day smoker tobacco type: cigarettes packs per day: 1 alcohol intake: current substance use type: marijuana current occupational status: employed Travel in the last 8 weeks: None Review of Systems Review of Systems Review of systems:: pertinent systems reviewed and negative unless documented below Constitutional Constitutional: Reports system reviewed and no additional complaints, except as documented Eyes Eyes: Reports change in vision, Denies exophthalmos, Reports floaters, Denies irritation, Denies itchy eyes, Reports loss of vision, Denies eye pain and Denies photophobia ENT Ears, Nose, Mouth, and Throat: Reports system reviewed and no additional complaints, except as documented *Cardiovascular Cardiovascular: Reports system reviewed and no additional complaints, except as documented *Respiratory Respiratory: Reports system reviewed and no additional complaints, except as documented *Gastrointestinal Gastrointestinal: Reports system reviewed and no additional complaints, except as documented *Genitourinary Genitourinary: Reports system reviewed and no additional complaints, except as documented *Musculoskeletal Musculoskeletal: Reports system reviewed and no additional complaints, except as documented Integumentary/Breasts Skin/Breast: Reports system reviewed and no additional complaints, except as documented *Neurologic Neurologic: Reports system reviewed and no additional complaints, except as documented and Reports loss of vision Psychiatric Psychiatric: Reports system reviewed and no additional complaints, except as documented Endocrine Endocrine: Reports system reviewed and no additional complaints, except as documented Hematologic/Lymphatic Hematologic/Lymphatic: Reports system reviewed and no additional complaints, except as documented Allergic/Immunologic Allergic/Immunologic: Reports system reviewed and no additional complaints, except as documented and Denies itchy eyes Meds Home Medications and Allergies Home Medications Medication Instructions Recorded Confirmed Type ferrous sulfate 325 mg (65 mg 325 mg PO DAILY Supplement 05/11/22 05/11/22 History iron) tablet prenat.vits,anshul,[id number] 1 tab PO DAILY Supplement 05/11/22 05/11/22 History New Prescriptions to Start Prescriptions: Allergies Allergy/AdvReac Type Severity Reaction Status Date / Time No Known Allergies Allergy Verified 05/06/22 10:00 Results Labs Result Diagrams: 05/12/22 05:56 05/12/22 05:56 Labs: Abnormal lab results 05/11/22 05/11/22 05/11/22 Range/Units 05:55 11:20 11:20 WBC (4.8-10.8) K/mm3 RBC (4.20-5.40) M/mm3 Hgb 8.1 L D (12.2-16.2) g/dL Hct 24.8 L (37.0-47.0) % Neut % (Auto) (37.0-80.0) % Neut # (Auto) (1.8-7.8) K/mm3 [place] # (Auto) (0.1-1.0) K/mm3 Neutrophils % (Manual) (42-76) % Sodium 133 L (136-145) mmol/L Chloride 108 H (98-107) mmol/L Carbon Dioxide (22.0-30.0) mmol/L Anion Gap 4.5 L (5-15) mEq/L Calcium 7.3 L (8.4-10.2) mg/dl Total Bilirubin (0.2-1.3) mg/dl AST (14-36) U/L Total Protein (6.3-8.2) g/dl Albumin (3.5-5.0) g/dl Crossmatch (AHG) See Detail 05/11/22 05/12/22 05/12/22 Range/Units 12:12 05:56 05:56 WBC 20.3 H* D (4.8-10.8) K/mm3 RBC 3.91 L
--- NOTE | 2022-05-12 14:23 | PC.NURSE ---
Received call from Fozia in reference to pt. Neeta states that pt has been accepted at to the womens unit for further monitoring on her left eye and the vision abnormalities. Pt was informed of intended transfer and reasoning behind transfer to . it was explained to pt that MDs at have reviewed her CT scan and records from this admission and they recommend she be transferred to for further evaluation/monitoring. pt and pt mother both refuse to be transferred. it was explained the risks to the patient of not being transferred. Rochelle Santacruz was notified as well as Dr Pride about pt refusal of transfer. Rochelle Santacruz on unit at 1435 to speak with patient and family.
--- NOTE | 2022-05-12 16:12 | EXP.ACUTE.PN ---
Subjective *Date: 05/12/22 *Time: 16:12 Interval history: She is doing well this afternoon. She is feeling hungry. She has not passed any gas yet. She would like to try eating some normal food. She denies any nausea or vomiting. Her pain is reasonably well controlled with an occasional Percocet. She is still receiving IV fluids but were just giving her 50 cc an hour. She has put out 1250 cc today so far. She did complain of seeing a floater in her left eye and she was seen by Dr. Dove. She was also seen by Dr. Elizabeth who felt that was a small vitreal bleed. She says this afternoon that the vision in her left eye has improved. She denies any headache or scotomata. Medical Exam Vital signs and Labs for Last 24 Hours: Temp Pulse Resp BP Pulse Ox 98.2 F 97 H 18 101/65 L 97 05/12/22 08:00 05/12/22 14:30 05/12/22 14:30 05/12/22 14:30 05/12/22 14:30 Laboratory Results - last 24 hr 05/11/22 11:20: Hgb 8.1 L D, Hct 24.8 L 05/11/22 11:20: Sodium 133 L, Potassium 3.5, Chloride 108 H, Carbon Dioxide 24, Anion Gap 4.5 L, BUN 11, Creatinine 0.60, Estimated Creat Clear 171, Estimated GFR 123, Est GFR ( Amer) 149, Glucose 79, Calcium 7.3 L, Troponin I < 0.01 05/11/22 12:12: Hgb 11.8 L D 05/11/22 17:45: Hgb 13.6, Hct 41.7 05/12/22 05:56: WBC 20.3 H* D, RBC 3.91 L, Hgb 12.1 L D, Hct 37.1, MCV 94.9, MCH 31.0, MCHC 32.7, RDW 16.2, Plt Count 185, MPV 8.6, Neut % (Auto) 81.3 H, Lymph % (Auto) 11.9, [place] % (Auto) 6.0, Eos % (Auto) 0.4, Baso % (Auto) 0.5, Neut # (Auto) 16.5 H, Lymph # (Auto) 2.4, [place] # (Auto) 1.2 H, Eos # (Auto) 0.1, Baso # (Auto) 0.1, Total Counted 100, Neutrophils % (Manual) 80 H, Lymphocytes % (Manual) 16, Monocytes % (Manual) 4, Platelet Estimate Normal, RBC Morphology Normal 05/12/22 05:56: Sodium 131 L, Potassium 4.4 D, Chloride 105, Carbon Dioxide 20 L, Anion Gap 10.4, BUN 8 D, Creatinine 0.60, Estimated Creat Clear 171, Estimated GFR 123, Est GFR ( Amer) 149, Glucose 91, Calcium 7.9 L, Total Bilirubin < 0.1 L, AST 39 H, ALT 22, Alkaline Phosphatase 89, Total Protein 3.9 L, Albumin 2.0 L, Globulin 1.9, Albumin/Globulin Ratio 1.1 I & O for Labs for Last 24 Hours: Intake & Output 05/10/22 05/11/22 05/12/22 05/13/22 11:59 11:59 11:59 11:59 Intake Total 5862 / 5862 Output Total 1250 / 2250 1000 / 1000 Balance 4612 / 3612 -1000 / -1000 Weight 152 lb 165 lb 3.2 oz Microbiology Reports for the Last 24 Hours: Microbiology 05/11/22 05:45 Urine,Clean Catch Urine Culture - Preliminary Head: Present atraumatic Eyes: Present as per HPI Neck: Present normal inspection Respiratory: Present normal respiratory effort GI: Present soft and distention; Absent tenderness, guarding or rigidity Assessment and Plan *Assessment and plan (1) Bicornuate uterus during , delivered, current hospitalization: Status: Acute Category: Medical Code(s): O34.00 - Maternal care for unspecified congenital malformation of uterus, unspecified trimester; Q51.3 - Bicornate uterus (2) Placenta accreta: Status: Acute Category: Medical Code(s): O43.219 - Placenta accreta, unspecified trimester (3) Vacuum extractor delivery, delivered: Status: Acute Category: Medical Code(s): O75.9 - Complication of labor and delivery, unspecified (4) hemorrhage, condition: Status: Acute Category: Medical Code(s): O72.1 - Other immediate hemorrhage (5) Oligohydramnios antepartum: Status: Acute Qualifiers: Fetus number: single or unspecified fetus Qualified Code(s): O41.00X0 - Oligohydramnios, unspecified trimester, not applicable or unspecified Category: Medical Code(s): O41.00X0 - Oligohydramnios, unspecified trimester, not applicable or unspecified (6) IUGR (intrauterine growth restriction) affecting care of mother: Status: Acute Category: Medical Code(s):
--- NOTE | 2022-05-12 16:32 | PC.NURSE ---
Pt has rested in her room this shift with HOB elevated to 30-45 degrees (this was an advisement from to Rochelle Santacruz this afternoon 1335). lungs are clear, bowel sounds are hypoactive in all quads. Dr Pride gave order for pt to have regular diet and advance as tolerated. ([id number]) pt states she has very little pain, more discomfort from gas. simethicone given as ordered. pt advised Dr pride and this RN that the majority of the vision abnormality had resolved and she was now able to see slightly from her left eye. nad noted. dressing was changed on abdomen this am. no redness noted, no drainage noted. pt mom has been at bedside most of this shift. pt infant daughter on OB unit at this time as well.
[2022-05-13] VITALS (13 sets, daily range): BP systolic 100–125; BP diastolic 61–72; PULSE 100–140; RESP 18–23; TEMP 36.6–37.1; O2SAT 91–98; BMI 27.5
--- NOTE | 2022-05-13 04:34 | PC.NURSE ---
Addendum entered by Gini Montero RN 05/13/22 04:39: pt states left eye seems almost back to normal , pupils perrla at 3mm, pt can track finger every direction and can tell RN how many fingers holding up in all quadrants Addendum entered by Gini Montero RN 05/13/22 04:37: pt rested well this shift, EMV 15, pt VSS, pt's abdominal dressing cdi, abdomen soft with hypoactive bowel sounds prn senna given at bedtime, MIVF going at 100mL/hr, significant other at bedside Original Note: removed pt's hess catheter had 200mL in bag, pt got up to bathroom and sat on commode for a while, changed pad and underwear, moderate sanguineous drainage, pt performed own sang care, changed pt's gown and got pt back to bed, asked pt if had filled out certificate pt stated I've got it about half way done ; pt c/o pain, prn pain medication given; call luong within reach
--- NOTE | 2022-05-13 04:45 | PC.NURSE ---
after got pt up to bathroom and back to bed, pt's HR remaining 120-130's, will give her some time to relax and let pain medication take effect since pt did just get up and walk for the first time
--- NOTE | 2022-05-13 09:59 | EXP.ACUTE.PN ---
Subjective *Date: 05/13/22 *Time: 09:59 Interval history: She seems to be doing very well this morning. She is eating and drinking and ambulating. She has had her [place] catheter removed. She is still not passing much gas. She has not had a bowel movement yet. She is voiding well. She denies any chest pain or shortness of breath. She denies any calf tenderness. Her pain is reasonably well controlled. She takes occasional Percocet. She had the vitreous hemorrhage in her left eye and she says that her vision is improved in the left eye. Medical Exam Vital signs and Labs for Last 24 Hours: Temp Pulse Resp BP Pulse Ox 98.3 F 101 H 18 101/72 L 96 05/13/22 07:47 05/13/22 08:00 05/13/22 08:00 05/13/22 08:00 05/13/22 08:00 I & O for Labs for Last 24 Hours: Intake & Output 05/10/22 05/11/22 05/12/22 05/13/22 11:59 11:59 11:59 11:59 Intake Total 6222 / 6222 1062 / 1062 Output Total 1250 / 2250 6100 / 6100 Balance 4972 / 3972 -5038 / -5038 Weight 152 lb 165 lb 3.2 oz 155 lb 3.2 oz Microbiology Reports for the Last 24 Hours: Microbiology 05/11/22 05:45 Urine,Clean Catch Urine Culture - Final Multiple organisms, suggests contamination. Head: Present atraumatic and normocephalic Eyes: Present as per HPI ENT: Present normal exam Respiratory: Present normal respiratory effort and able to speak in complete sentences; Absent accessory muscle use Cardiac: Present Reg Rate and Rhythm GI: Present soft and normal bowel sounds; Absent distention, tenderness, guarding, rebound or rigidity Rectal (female): Present deferred (female): Present deferred Extremities: Present normal inspection Skin: Present intact Neuro: Present alert and awake Assessment and Plan *Assessment and plan (1) Vitreous hemorrhage of left eye: Status: Acute Category: Medical Code(s): H43.12 - Vitreous hemorrhage, left eye (2) Bicornuate uterus during , delivered, current hospitalization: Status: Acute Category: Medical Code(s): O34.00 - Maternal care for unspecified congenital malformation of uterus, unspecified trimester; Q51.3 - Bicornate uterus (3) Placenta accreta: Status: Acute Category: Medical Code(s): O43.219 - Placenta accreta, unspecified trimester (4) Rupture of uterus after labor: Status: Acute Category: Medical Code(s): O71.1 - Rupture of uterus during labor (5) Vacuum extractor delivery, delivered: Status: Acute Category: Medical Code(s): O75.9 - Complication of labor and delivery, unspecified (6) hemorrhage, condition: Status: Acute Category: Medical Code(s): O72.1 - Other immediate hemorrhage (7) Hypotension after procedure: Status: Acute Category: Medical Code(s): I95.81 - Postprocedural hypotension (8) IUGR (intrauterine growth restriction) affecting care of mother: Status: Acute Category: Medical Code(s): O36.5990 - Maternal care for other known or suspected poor growth, unspecified trimester, not applicable or unspecified (9) Oligohydramnios antepartum: Status: Acute Qualifiers: Fetus number: single or unspecified fetus Qualified Code(s): O41.00X0 - Oligohydramnios, unspecified trimester, not applicable or unspecified Category: Medical Code(s): O41.00X0 - Oligohydramnios, unspecified trimester, not applicable or unspecified Assessment and plan all Dx Assessment and Plan All Dx:: She is much improved today. She is voiding well and her pain is well controlled. She is hemodynamically stable. Her vitals are stable. She denies any shortness of breath or chest pain. We will plan to send her to labor and delivery today. We will keep her another 48 hours and then send her home.
--- NOTE | 2022-05-13 10:06 | PC.NURSE ---
Report called to MAX Esposito in OB
--- NOTE | 2022-05-13 14:01 | ECG_ITS ---
APPROVED REPORT Exam: Resting ECG HR:125 bpm ECG Measurements Heart Rate 125 AXES VA 148 P 58 QRSd 69 QRS 54 QT 299 T 81 QTc 373 Conclusion SINUS TACHYCARDIA MINIMAL ST DEPRESSION [0.025+ mV ST DEPRESSION] ABNORMAL RHYTHM ECG UNCONFIRMED REPORT Electronically signed by : Darius Knapp MD 05/13/2022 17:36:25
[2022-05-13 14:45] LABS: Basophils # 0.1 K/mm3 (0-0.2); Basophils % 0.6 % (0.1-2.0); Eosinophils # 0.3 K/mm3 (0.0-0.4); Eosinophils % 2.1 % (0.1-12.0); Hematocrit 32.7 % (37.0-47.0); Hemoglobin 11.4 g/dL (12.2-16.2); Lymphocytes # 1.5 K/mm3 (0.7-4.5); Lymphocytes % 10.7 % (10-50); Mean Corpuscular HGB Conc 34.8 g/dL (31.8-35.4); Mean Corpuscular Hemoglobin 31.6 pg (27.0-31.2); Mean Corpuscular Volume 90.8 fl (81-99); Mean Platelet Volume 8.2 fl (7.4-10.4); Monocytes # 0.7 K/mm3 (0.1-1.0); Neutrophils # 11.2 K/mm3 (1.8-7.8); Neutrophils % 81.5 % (37.0-80.0); Platelet Count 192 K/mm3 (142-424); White Blood Count 13.7 K/mm3 (4.8-10.8)
[2022-05-13 14:58] LABS: Alanine Aminotransferase 16 U/L (12-78); Albumin Level 2.4 g/dl (3.5-5.0); Alkaline Phosphatase 122 U/L (38-126); Anion Gap 6.8 mEq/L (5-15); Aspartate Amino Transferase 37 U/L (14-36); Blood Urea Nitrogen 10 mg/dl (7-17); Calcium 7.9 mg/dl (8.4-10.2); Carbon Dioxide 25 mmol/L (22.0-30.0); Chloride 107 mmol/L (98-107); Creatinine Clearance Estimated 138 mL/min (50-200); Estimated Glomerular Filt Rate 103 ml/min (>60); GFR (African American) 124 ML/MIN (>60); Globulin 2.3 g/dL (1.3-3.2); Glucose 96 mg/dl (74-100); Potassium 3.8 mmoL/L (3.5-5.1); Sodium 135 mmol/L (136-145); Total Protein,Serum 4.7 g/dl (6.3-8.2)
[2022-05-13 15:00] LABS: Bilirubin,Total < 0.1 mg/dl (0.2-1.3)
[2022-05-13 15:28] LABS: Thyroid Stimulating Hormone 1.57 uIU/mL (0.465-4.68)
[2022-05-14] VITALS (7 sets, daily range): BP systolic 108–115; BP diastolic 64–73; PULSE 100–130; RESP 16–18; TEMP 36.7–37.1; O2SAT 97–99
--- NOTE | 2022-05-14 09:14 | CA_ITS ---
APPROVED REPORT EXAM: Comprehensive 2D, Doppler, and color-flow Echocardiogram Wage Adjuster: Shari Weinstein, RT(R) Ht: 5 ft 4 in Wt: 140lbs BSA: 1.68 BP: 111/71 mmHg Indications: Post x 3 days, tachycardia, hypotension, smoker. 2D Dimensions LVOT 1.90 cm (M/F) 1.5-2.5 LVEF (Dimas's) 45.10 % F: 54 - 74 LV Volume 97.50 mL F: 46 - 106 LV Volume Index 58.03 mL/m2 F: 29 - 61 LA Volume 26.40 mL LA Volume Index 15.71 mL/m2 (M/F) 16-34 M-Mode Dimensions RVDd 2.13 cm (0.9-2.6) LA Diam 2.51 cm (1.9-4.0) LVDd 4.88 cm (3.5-5.7) Ao Diam 2.48 cm (2.0-3.7) LVDs 3.79 cm (3.5-5.7) IVSd 0.85 cm (0.6-1.1) PWd 0.88 cm (0.6-1.1) EF (Teich) 44.90% FS 22.30% EDV (Teich) 111.70 mL ESV (Teich) 61.60 mL LV Diastology E Decel Time 118.00 (160-240 msec) E/A Ratio 2.9 MED E' 7.80 (< 7 cm/sec) E'/MED E' Ratio 15.99 (>14) LAT E' 13.50 (<10 cm/sec) E/LAT E' Ratio 9.24 (>14) Mitral Valve MV E Max Tristan. 125.00 (40-130 cm/s) MV A Velocity 43.00 (40-130 cm/s) E/A Ratio 2.89 MV Decel. Time 118.00 (160-240 ms) MV PHT 35.00 ms Left Ventricle Left atrium is normal size, left ventricle is normal size, there is no concentric left ventricular hypertrophy, estimated ejection fraction 55% with no regional wall motion abnormality, diastolic parameters are within normal range. Right Ventricle Right atrium and right ventricle are normal size and contractility. Aortic Valve Aortic valve is grossly normal there is no aortic stenosis aortic insufficiency. Mitral Valve Mitral valve grossly normal, there is trace mitral regurgitation. Tricuspid Valve Tricuspid grossly normal, there is trace tricuspid regurgitation, tricuspid regurgitation jet velocity is inadequate for calculation of the right ventricular systolic pressure. Pulmonic Valve Pulmonic valve is poorly visualized. Great Vessels Aortic root is normal size. Inferior vena cava is poorly visualized. Pericardium No significant pericardial effusion noted. Conclusion 1. Normal left ventricular size preserved left ventricular systolic function, estimated ejection fraction 55% with no regional wall motion abnormality, diastolic parameters are within normal range. 2. Trace mitral and tricuspid regurgitation. 3. No significant pericardial effusion noted 4. Inferior vena cava is poorly visualized. Electronically signed by : Heriberto Portillo MD 05/15/2022 10:37:37
--- NOTE | 2022-05-14 09:25 | EXP.ACUTE.PN ---
Subjective *Date: 05/14/22 *Time: 09:25 Interval history: She seems to be doing well this morning. She is eating and drinking and ambulating. She is passing gas. She has not had a bowel movement yet. She denies any shortness of breath or chest pain. She says she has a cough but just occasionally. She is a smoker. She has not smoked or had the need for nicotine patch since admission. Her blood counts are all normal. The only concern is her heart rate still continues to be elevated. She did have an EKG yesterday that was essentially normal. Cardiology is good to have another look at her today. Medical Exam Vital signs and Labs for Last 24 Hours: Temp Pulse Resp BP Pulse Ox 97.8 F 130 H 18 103/62 L 96 05/13/22 16:30 05/14/22 04:00 05/13/22 16:30 05/13/22 16:30 05/13/22 16:30 Laboratory Results - last 24 hr 05/11/22 05:55: Crossmatch (AHG) See Detail 05/13/22 14:35: WBC 13.7 H D, RBC 3.60 L, Hgb 11.4 L, Hct 32.7 L, MCV 90.8, MCH 31.6 H, MCHC 34.8, RDW 16.0, Plt Count 192, MPV 8.2, Neut % (Auto) 81.5 H, Lymph % (Auto) 10.7, [place] % (Auto) 5.0, Eos % (Auto) 2.1, Baso % (Auto) 0.6, Neut # (Auto) 11.2 H, Lymph # (Auto) 1.5, [place] # (Auto) 0.7, Eos # (Auto) 0.3, Baso # (Auto) 0.1 05/13/22 14:35: Sodium 135 L, Potassium 3.8, Chloride 107, Carbon Dioxide 25, Anion Gap 6.8, BUN 10, Creatinine 0.70, Estimated Creat Clear 138, Estimated GFR 103, Est GFR ( Amer) 124, Glucose 96, Calcium 7.9 L, Total Bilirubin < 0.1 L, AST 37 H, ALT 16 D, Alkaline Phosphatase 122, Total Protein 4.7 L, Albumin 2.4 L D, Globulin 2.3, Albumin/Globulin Ratio 1.0 L, TSH 1.57 I & O for Labs for Last 24 Hours: Intake & Output 05/11/22 05/12/22 05/13/22 05/14/22 11:59 11:59 11:59 11:59 Intake Total 6222 / 6222 1062 / 1062 Output Total 1250 / 2250 6100 / 6100 Balance 4972 / 3972 -5038 / -5038 Weight 152 lb 165 lb 3.2 oz 155 lb 3.2 oz Microbiology Reports for the Last 24 Hours: Microbiology 05/11/22 05:45 Urine,Clean Catch Urine Culture - Final Multiple organisms, suggests contamination. Head: Present atraumatic Neck: Present normal inspection Respiratory: Present normal respiratory effort; Absent accessory muscle use Cardiac: Present Reg Rate and Rhythm and Tachycardia GI: Present soft and scar (Her incision is clean and dry.) Rectal (female): Present deferred (female): Present deferred Extremities: Present full ROM; Absent tenderness Skin: Present intact Assessment and Plan *Assessment and plan (1) Vitreous hemorrhage of left eye: Status: Acute Category: Medical Code(s): H43.12 - Vitreous hemorrhage, left eye (2) Bicornuate uterus during , delivered, current hospitalization: Status: Acute Category: Medical Code(s): O34.00 - Maternal care for unspecified congenital malformation of uterus, unspecified trimester; Q51.3 - Bicornate uterus (3) Placenta accreta: Status: Acute Category: Medical Code(s): O43.219 - Placenta accreta, unspecified trimester (4) Vacuum extractor delivery, delivered: Status: Acute Category: Medical Code(s): O75.9 - Complication of labor and delivery, unspecified (5) Rupture of uterus after labor: Status: Acute Category: Medical Code(s): O71.1 - Rupture of uterus during labor (6) Ruptured uterus during labor, delivered: Status: Acute Category: Medical Code(s): O71.1 - Rupture of uterus during labor (7) hemorrhage, condition: Status: Acute Category: Medical Code(s): O72.1 - Other immediate hemorrhage (8) Abnormal EKG: Status: Acute Category: Medical Code(s): R94.31 - Abnormal electrocardiogram [ECG] [EKG] (9) Hypotension after procedure: Status: Acute Category: Medical Code(s): I95.81 - Postprocedural hypotension (10) IUGR (intrauterine growth res
--- NOTE | 2022-05-14 09:31 | ECG_ITS ---
APPROVED REPORT Exam: Resting ECG HR:107 bpm ECG Measurements Heart Rate 107 AXES [place] 167 P 55 QRSd 73 QRS 51 QT 347 T 61 QTc 410 Conclusion SINUS TACHYCARDIA ABNORMAL RHYTHM ECG UNCONFIRMED REPORT Electronically signed by : Darius Knapp MD 05/14/2022 19:24:14
--- NOTE | 2022-05-14 09:54 | EXP.CARD.PN ---
Subjective Subjective Date: 05/14/22 Time: 09:54 Principal diagnosis: ruptured uterus, tachycardia Interval history: 22-year-old white female sitting up in bed in no acute distress. Currently with automated breast pumps in place. Patient denies any chest pain, pressure, tightness or palpitations. Cardiology was asked to see the patient again today due to recurrent heart rates up near the 160 bpm range which was confirmed on telemetry strips. Current EKG shows sinus tachycardia at 107 bpm. Exam Data for Last 24 hours Vital signs and Labs for Last 24 Hours: Temp Pulse Resp BP Pulse Ox 97.8 F 130 H 18 103/62 L 96 05/13/22 16:30 05/14/22 04:00 05/13/22 16:30 05/13/22 16:30 05/13/22 16:30 Laboratory Results - last 24 hr 05/11/22 05:55: Blood Type A Positive, Antibody Screen Negative, Crossmatch (AHG) See Detail 05/13/22 14:35: WBC 13.7 H D, RBC 3.60 L, Hgb 11.4 L, Hct 32.7 L, MCV 90.8, MCH 31.6 H, MCHC 34.8, RDW 16.0, Plt Count 192, MPV 8.2, Neut % (Auto) 81.5 H, Lymph % (Auto) 10.7, [place] % (Auto) 5.0, Eos % (Auto) 2.1, Baso % (Auto) 0.6, Neut # (Auto) 11.2 H, Lymph # (Auto) 1.5, [place] # (Auto) 0.7, Eos # (Auto) 0.3, Baso # (Auto) 0.1 05/13/22 14:35: Sodium 135 L, Potassium 3.8, Chloride 107, Carbon Dioxide 25, Anion Gap 6.8, BUN 10, Creatinine 0.70, Estimated Creat Clear 138, Estimated GFR 103, Est GFR ( Amer) 124, Glucose 96, Calcium 7.9 L, Total Bilirubin < 0.1 L, AST 37 H, ALT 16 D, Alkaline Phosphatase 122, Total Protein 4.7 L, Albumin 2.4 L D, Globulin 2.3, Albumin/Globulin Ratio 1.0 L, TSH 1.57 I & O for Last 24 hours: Intake & Output 0905/12/22 05/13/22 05/14/22 11:59 11:59 11:59 11:59 Intake Total 6222 / 6222 1062 / 1062 Output Total 1250 / 2250 6100 / 6100 Balance 4972 / 3972 -5038 / -5038 Weight 152 lb 165 lb 3.2 oz 155 lb 3.2 oz Microbiology Reports for the Last 24 Hours: Microbiology 05/11/22 05:45 Urine,Clean Catch Urine Culture - Final Multiple organisms, suggests contamination. Constitutional Constitutional: no acute distress *Routine Respiratory Exam Respiratory: Present CTA bilaterally *Routine Cardiovascular Exam Cardiovascular: Present RRR; Absent murmur, gallop or rubs Progress Note: A&P Assessment and plan (1) Vitreous hemorrhage of left eye: Status: Acute (2) Bicornuate uterus during , delivered, current hospitalization: Status: Acute (3) Placenta accreta: Status: Acute (4) Vacuum extractor delivery, delivered: Status: Acute (5) Rupture of uterus after labor: Status: Acute (6) Ruptured uterus during labor, delivered: Status: Acute (7) hemorrhage, condition: Status: Acute (8) Abnormal EKG: Status: Acute (9) Hypotension after procedure: Status: Acute (10) IUGR (intrauterine growth restriction) affecting care of mother: Status: Acute (11) Oligohydramnios antepartum: Status: Acute (12) Sinus tachycardia: Status: Acute Assessment and Plan Assessment and Plan for All Diagnoses:: Sinus tachycardia felt secondary to combination of abdominal pain related to recent surgery, nicotine withdrawal and deconditioning. We will obtain an echocardiogram today to rule out cardiomyopathy. (Preliminary report shows preserved ejection fraction with no significant valve disease and no evidence of pericardial effusion). Would not recommend rate control medication at this time. EKG today showed sinus tachycardia at 107 bpm. Nothing further to add at this time. Patient stable from a cardiac standpoint for discharge when deemed appropriate by primary provider. Follow-up in our office in 2 weeks.
--- NOTE | 2022-05-14 11:16 | SW/DCPLANNER ---
Addendum entered by Saba Disla 05/15/22 09:44: Cord screen is NEGATIVE on this . Original Note: I received a referral on this patient regarding THC use during . Patient tested positive for THC on: 10/02/21, 10/30/21, 12/31/21, 02/04/22, 03/04/22. Patient stated that she was three months before knowing then stopped. Patient also stated that she used a pen from local liquor store and did not realize this would make her test positive for THC. Infant and patient were negative at admission. Patient stated that she has not had anymore drug use. Patient delivered female (Lilian Cunningham) on 05/11/22. Infant's father (Cristiano Cunningham 08/10/03) was present at time of my visit. Patient, Cristiano, infant and patient's other two children (Roosevelt and Tasha Adamson) will reside at [address] [place] [address]. Patient's contact number is [phone]. Patient stated that she will establish with [facility] and is interested in [facility]. I will make referral to [facility]an/ [facility]. Patient stated she has the following items at home: crib, carseat, clothing, diapers and will breast feed. Patient stated that she has not had any past Social Service involvement. Patient is expected to discharge home tomorrow. Patient has no further needs at this time.
[2022-05-15] VITALS: PULSE 120
[2022-05-15 04:00] VITALS: PULSE 100
[2022-05-15 09:58] VITALS: BP 120/72; PULSE 105; RESP 16; TEMP 36.7; O2SAT 98
[2022-05-15 12:00] VITALS: PULSE 90
--- NOTE | 2022-05-15 12:00 | EXP.DC.SUM ---
General Admission date:: 05/11/22 Discharge date: 05/15/22 HPI HPI HPI: Admitted for IOL at 38+ weeks for growth restriction Labor and delivery were uncomplicated, but placenta did not deliver immediately after delivery She subsequently became hypotensive without significant vaginal bleeding Abdominal ultrasound performed at bedside showed free fluid in abdomen and she was taken to the OR for immediate laparotomy Rupture of uterine fundus was found with evidence of morbidly adherent placenta and emergent hysterectomy was performed This procedure was uncomplicated, and the significant blood loss was a result of uterine rupture and not surgical in nature Transfusion had been started in delivery room and immediate post-transfusion labs were appropriate Hospital Course Hospital Course Hospital Course: Postop course was stable She is discharged home on POD #4 in stable condition She is tolerating a regular diet She is ambulating and voiding without difficulty +BM Intermittent tachycardia was evaluated by cardiology with no concerning findings She will follow up with cardiology in 2 weeks, per their recommendation Exam Data for Last 24 hours Vital signs and Labs for Last 24 Hours: Temp Pulse Resp BP Pulse Ox 98.1 F 105 H 16 120/72 98 05/15/22 09:58 05/15/22 09:58 05/15/22 09:58 05/15/22 09:58 05/15/22 09:58 I & O for Last 24 hours: Intake & Output 05/13/22 05/14/22 05/15/22 05/16/22 11:59 11:59 11:59 11:59 Intake Total 1062 / 1062 Output Total 6100 / 6100 Balance -5038 / -5038 Weight 155 lb 3.2 oz Constitutional Constitutional: no acute distress *Routine HEENT Exam Head: Present normocephalic Eye: Absent conjunctival icterus or scleral injection ENT: Present mucous membranes moist *Routine Neck Exam Neck: Present supple *Routine Respiratory Exam Respiratory: Present CTA bilaterally *Routine Cardiovascular Exam Cardiovascular: Present RRR *Routine Abdominal Exam Abdominal: Present soft; Absent tenderness or distended *Routine Rectal Exam Patient deferred: visual exam and digital exam *Routine Exam Patient deferred: external exam Comments: Fundus firm below umbilicus *Routine Extremities Exam Extremities: Present edema *Routine Skin Exam Skin: Present intact and dry Comments: Incision intact without erythema or purulent drainage *Routine Neurological Exam Neurological: Present alert and oriented X3 Routine Psychiatric Exam Psychiatric: Present normal affect; Absent depressed DS: Diagnosis Discharge Diagnosis (1) IUGR (intrauterine growth restriction) affecting care of mother: Status: Acute (2) Oligohydramnios antepartum: Status: Acute (3) Vacuum extractor delivery, delivered: Status: Acute (4) Bicornuate uterus during , delivered, current hospitalization: Status: Acute (5) Placenta accreta: Status: Acute (6) Ruptured uterus during labor, delivered: Status: Acute (7) Rupture of uterus after labor: Status: Acute (8) hemorrhage, condition: Status: Acute (9) Vitreous hemorrhage of left eye: Status: Acute (10) Hypotension after procedure: Status: Acute (11) Abnormal EKG: Status: Acute (12) Sinus tachycardia: Status: Acute Meds Home Medications and Allergies Home Medications Medication Instructions Recorded Confirmed Type ferrous sulfate 325 mg (65 mg 325 mg PO DAILY Supplement 05/11/22 05/11/22 History iron) tablet prenat.vits,anshul,lnm-vthq-tkhlp 1 tab PO DAILY Supplement 05/11/22 05/11/22 History acetaminophen 325 mg tablet 650 mg PO Q4HP PRN Mild Pain with 05/15/22 Rx NSAID #30 tabs ibuprofen 400 mg tablet 800 mg PO Q6HP PRN Mild To 05/15/22 Rx Moderate Pain #40 tabs oxycodone 5 mg tablet 5 mg PO Q4HP PRN Moderate Pain #24 05/15/22 Rx tabs New Prescriptions to Start Prescriptions: acetaminophen M
== END 2022-05-15 14:15 | disposition home or self-care (01) | DRG 768 ==
LOC: OB 05:18 → 2ND 15:13 → OB 05-13 10:10
PROVIDERS: Admitting Provider Nurse Practitioner Obstetrics & Gynecology; PCP Emergency Medicine; Visit Provider Nurse Practitioner Obstetrics & Gynecology
PROC: 10D07Z6 Extraction of Products of Conception, Vacuum, Via Natural or Artificial Opening (ICD-10-PCS; principal; 2022-05-11 12:10)
DX: O36.5930 Maternal care for other known or suspected poor fetal growth, third trimester, not applicable or unspecified (principal); Z37.0 Single live birth; O71.1 Rupture of uterus during labor; O41.03X0 Oligohydramnios, third trimester, not applicable or unspecified; O72.1 Other immediate postpartum hemorrhage; Z3A.39 39 weeks gestation of pregnancy; O43.213 Placenta accreta, third trimester; I95.81 Postprocedural hypotension; O75.9 Complication of labor and delivery, unspecified; O34.00 Maternal care for unspecified congenital malformation of uterus, unspecified trimester; O99.334 Smoking (tobacco) complicating childbirth; O90.89 Other complications of the puerperium, not elsewhere classified; H43.12 Vitreous hemorrhage, left eye
CPT/HCPCS: 59409; 36140; 58150; 36415; 59025; 70480; 74018; 80048; 80053; 80305; 81001; 84443; 84484; 85007; 85014; 85018; 85025; 86850; 87086; 88307; 93005; 93306; 94761; C1751; C1758; C9290; C9803; G0283; J0330; J2405; J2710; P9016; U0003; U0005

== ENCOUNTER → 2022-05-28 12:01 | Outpatient (CLI) | payer OTHER, SELFPAY ==
[2022-05-28 12:42] LABS: Basophils # 0.1 K/mm3 (0-0.2); Basophils % 0.8 % (0.1-2.0); Eosinophils # 0.3 K/mm3 (0.0-0.4); Eosinophils % 3.9 % (0.1-12.0); Hematocrit 39.7 % (37.0-47.0); Hemoglobin 12.5 g/dL (12.2-16.2); Lymphocytes # 2.1 K/mm3 (0.7-4.5); Lymphocytes % 27.3 % (10-50); Mean Corpuscular HGB Conc 31.5 g/dL (31.8-35.4); Mean Corpuscular Hemoglobin 30.1 pg (27.0-31.2); Mean Corpuscular Volume 95.6 fl (81-99); Mean Platelet Volume 7.1 fl (7.4-10.4); Monocytes # 0.4 K/mm3 (0.1-1.0); Monocytes % 5.5 % (1.7-9.3); Neutrophils # 4.7 K/mm3 (1.8-7.8); Neutrophils % 62.5 % (37.0-80.0); Platelet Count 516 K/mm3 (142-424); Red Blood Count 4.15 M/mm3 (4.20-5.40); Red Cell Distribution Width 15.2 % (11.5-17.5); White Blood Count 7.5 K/mm3 (4.8-10.8)
[2022-05-28 13:04] LABS: Chloride 103 mmol/L (98-107); Potassium 4.5 mmoL/L (3.5-5.1); Sodium 140 mmol/L (136-145)
[2022-05-28 13:07] LABS: Blood Urea Nitrogen 4 mg/dl (7-17); Estimated Glomerular Filt Rate 103 ml/min (>60); GFR (African American) 124 ML/MIN (>60)
[2022-05-28 13:08] LABS: Anion Gap 11.5 mEq/L (5-15); Calcium 9.2 mg/dl (8.4-10.2); Carbon Dioxide 30 mmol/L (22.0-30.0); Glucose 77 mg/dl (74-100)
== END ==
PROVIDERS: PCP Emergency Medicine; Visit Provider Nurse Practitioner Family
DX: O71.1 Rupture of uterus during labor (principal); R00.0 Tachycardia, unspecified; Z72.0 Tobacco use; Z90.710 Acquired absence of both cervix and uterus; I63.9 Cerebral infarction, unspecified
CPT/HCPCS: 36415; 80048; 85025

== ENCOUNTER 2025-04-27 18:03 | Emergency (ER) | payer OTHER, SELFPAY ==
[2025-04-27 18:27] VITALS: BP 119/76; PULSE 97; RESP 15; TEMP 36.7; O2SAT 100; BMI 23.3
--- NOTE | 2025-04-27 18:52 | CT_ITS ---
PROCEDURE INFORMATION: Exam: CT Abdomen And Pelvis With Contrast Exam date and time: 04/27/2025 7:43 PM Age: 25 years old Clinical indication: Abdominal pain TECHNIQUE: Imaging protocol: Computed tomography of the abdomen and pelvis with contrast. Radiation optimization: All CT scans at this facility use at least one of these dose optimization techniques: automated exposure control; mA and/or kV adjustment per patient size (includes targeted exams where dose is matched to clinical indication); or iterative reconstruction. Contrast material: ISOVUE; Contrast volume: 75 ml; Contrast route: IV; COMPARISON: CR XR KUB 05/11/2022 1:28 PM FINDINGS: Lungs: Calcified granulomas in both lung matias. Bibasilar atelectasis Liver: Normal. No mass. Gallbladder and biliary ducts: The gallbladder is unremarkable Pancreas: Normal. No ductal dilation. Spleen: Normal. No splenomegaly. Adrenal glands: Normal. No mass. Kidneys and ureters: Normal. No hydronephrosis. Stomach and bowel: Unremarkable. No obstruction. No mucosal thickening. Appendix: No evidence of appendicitis. Intraperitoneal space: Unremarkable. No free air. No significant fluid collection. Vasculature: Unremarkable. No abdominal aortic aneurysm. Lymph nodes: Unremarkable. No enlarged lymph nodes. Urinary bladder: Unremarkable as visualized. Reproductive: 2 cm cystic area in the left vulva ( series 5, image 20). Differential includes infection. Bones/joints: Unremarkable. No acute fracture. Soft tissues: Unremarkable. IMPRESSION: 2 cm cystic area in the left vulva ( series 5, image 20). Differential includes infection.
[2025-04-27 19:00] LABS: Coronavirus 19, PCR Not Detected (NotDetected); Influenza A, PCR Not Detected (NotDetected); Influenza B, PCR Not Detected (NotDetected)
[2025-04-27 19:00] LABS: Microscopic, Urine URINE MICROSCOPIC (MICROSCOPIC)
[2025-04-27] MEDS: 0.9 % SODIUM CHLORIDE 1000ML 1,000 ML 999 ML IV (19:00)
[2025-04-27] MEDS: KETOROLAC 30MG/ML VIAL 30 MG IV (19:01)
[2025-04-27 19:04] LABS: Bilirubin,Urine Negative (Negative); Color,Urine YELLOW (Yellow); Glucose,Urine (UA) Negative (Negative); Ketones,Urine Negative (Negative); Leukocyte Esterase,Urine Negative (Negative); PH,Urine 5.5 (5.0-8.5); Protein,Urine Negative (Negative); Specific Gravity, Urine >= 1.030 (1.005-1.030); Urobilinogen,Urine 0.2 EU/dl (0.2)
--- NOTE | 2025-04-27 19:11 | ED_ITS ---
<Statement entered by Kelvin Presley MD - 04/27/25 23:50> I was consulted by the FRANTZ, and we discussed the complexity of the problems being addressed. I approved the treatment and management plan for this patient's care in the emergency department, thus performing a substantive portion of the medical decision making. Kelvin Presley MD Discharge Plan Disposition Patient Disposition: Home, Self-Care Prescriptions Prescriptions: No Action docusate sodium [Colace] 100 mg capsule 100 mg PO BID Qty: 60 3RF metoclopramide HCl [Reglan] 5 mg tablet 5 mg PO QID Qty: 60 0RF Rx Instructions: administer 30 minutes before meals ferrous sulfate 325 mg (65 mg iron) tablet 325 mg PO DAILY prenat.vits,anshul,jwq-rdnj-tjhmh Tablet 1 tab PO DAILY oxycodone 5 mg Tablet 5 mg PO Q4HP PRN (Reason: Moderate Pain) Qty: 24 0RF Referrals Follow up/Referrals: Buddy Wiseman II, MD [Staff Physician, Gastroenterology] - See instructions Provider,MD Juancho [Primary Care Provider, Medical] - See instructions Activity Restrictions/Add. Instructions Additional Instructions/Restrictions: Increase fluids and rest. Please call Dr. Wiseman office on Wednesday for an appointment. If any urgent needs occur please return to the ED. Clinical Impressions Clinical Impression: Abdominal bloating Instructions Patient Instructions: How to Avoid Gas, Intestinal Gas (Alternative Therapy), DI for Acute Abdominal Pain Print Language Print Language: Kuwaiti Discharge ED Provider: Kelvin Presley General Adult HPI <Lili Middleton (ED), DISC SANDER - Last Filed: 04/27/25 23:21> General Chief complaint: Abdominal Pain Stated complaint: bloated stomache for past 3 days Time Seen by Provider: 04/27/25 18:36 Mode of Arrival: Ambulatory Source of Information: Patient Description of Symptoms (Recalled from ER Triage Doc. by RN): patient states for 2 months she has been having lower abdominal pain with bloating over the past 3 days she has had increased bloating that is extremily uncomfortable with nausea. has had complete hysterectomy History of Present Illness HPI narrative: 25-year-old female presents to the ER today for complaint of abdominal pain and bloating over the past 3 days. States that she has had bloating for 3 months but over the past 3 days she has had increased nausea and increased pain. Patient is unsure about her hysterectomy but she believes she has her tubes left and part of her cervix. She says it was an emergency hysterectomy and is unsure what it is left. She has had no fevers. She has had nausea and 1 episode of vomiting. No diarrhea. She has had a headache for about a week and some stuffiness. She is concerned. Related Data Home Medications ?Medication ?Instructions ?Recorded ?Confirmed ferrous sulfate 325 mg (65 mg 325 mg PO DAILY Suppleme nt 05/11/22 06/24/22 iron) tablet prenat.vits,anshul,gha-ptyu-kjxgc 1 tab PO DAILY Suppleme nt 05/11/22 06/24/22 Previous Rx's ?Medication ?Instructions ?Recorded oxycodone 5 mg tablet 5 mg PO Q4HP PRN Moderate Pa in #24 05/15/22 tabs docusate sodium 100 mg capsule 100 mg PO BID #60 caps 05/28/22 (Colace) metoclopramide HCl 5 mg tablet 5 mg PO QID #60 tabs (Reglan) Allergies Allergy/AdvReac Type Severity Reaction Status Date / Time No Known Allergies Allergy Verified 06/24/22 10:54 COUNTS INCLUDE 234 BEDS AT THE [facility] <Lili Middleton (ED), DISC SANDER - Last Filed: 04/27/25 23:21> COUNTS INCLUDE 234 BEDS AT THE [facility] Disclaimer: The information contained in this section may have been updated after the patient was seen, as this information can be updated by other users. Surgical History History of total abdominal hysterectomy Hx of dilation and curettage Social History Smoking Status: Current every day smoker tobacco type: cigarettes packs per day: 1 alcohol intake: current alcohol intake frequency: holidays/special occasions only substance use type: marijuana current occupational status: employed Travel in the last 8 weeks?: None Have you lived/traveled outside US in past 30 days?: No Contact w/someone who lives/traveled outside US past 30 days?: No Exposure to someone with infectious disease in past 14 days?: No Do you have a fever (greater than 100.4 F or 38 C)?: No Have you tested positive for COVID-19?: No Exposed to someone with COVID-19 in past 14 days?: No Do you have a sore throat?: No Do you have a cough?: No Do you have any weakness?: No Do you have any diarrhea?: No Are you experiencing any unusual bleeding?: No Do you have any muscle aches/pain?: No Do you have any abdominal pain?: No Are you experiencing loss of taste or smell?: No Other Medical History Have you received the Flu Vaccine for this season: No Have you received the Pneumonia Vaccine: No <Lili Middleton (ED), DISC SANDER - Last Filed: 04/27/25 23:21> ROS Obtained: Yes Systems reviewed as appropriate & no additional complaints except as documented Constitutional Constitutional: Reports as per HPI Physical Exam <Lilieleanor Middleton (ED), DISC SANDER - Last Filed: 04/27/25 23:21> General General appearance: alert Head Head exam: normocephalic Eye Eye exam: Present PERRL and EOMI ENT ENT exam: Present normal oropharynx and mucous membranes moist Neck Neck exam: Present full ROM and trachea midline Respiratory Respiratory exam: Present normal lung sounds bilaterally Cardiovascular Cardiovascular exam: Present regular rate, normal rhythm, normal heart sounds, +S1 and +S2 Abdominal Exam Abdominal exam: Present soft, normal bowel sounds and other (bloating) Abdominal tenderness: Present diffuse and moderate Extremities Exam Extremities exam: Present full ROM and normal capillary refill Neurological Exam Neurological exam: Present alert, oriented X3 and normal gait Skin Skin exam: Present warm, dry and intact Medical Decision Making <Lilieleanor Middleton (ED), DISC SANDER - Last Filed: 04/27/25 23:21> Medical Records Screening: Per USPSTF and CDC recommendations, given the prevalence of disease in our region, it is our hospital?s policy to screen for HIV and viral Hepatitis for all patients aged 18 and over and those with ongoing risk factors. Lucho Inquiry Pt receiving controlled substance: No Lucho was queried for this patient: No Vital Signs: 04/27/25 18:27 04/27/25 20:00 04/27/25 21:33 Temperature 98.1 F 98.2 F 97.9 F Temperature Source Oral Oral Oral Pulse Rate 77 69 Pulse Rate [Right Radial] 97 H Respiratory Rate 15 16 16 Blood Pressure 115/77 97/62 L Blood Pressure [Right Arm] 119/76 Blood Pressure Mean [Right Arm] 90 Blood Pressure Source [Right Arm] Automatic Cuff Blood Pressure Position Supine Blood Pressure Position [Right Arm] Sitting 02 Sat by Pulse Oximetry 100 97 Oxygen Delivery Method Room Air Room Air Room Air Lab Data Lab Results 04/27/25 18:19: Urine Color Yellow, Urine Appearance Clear, Urine pH 5.5, Ur Specific [place] >= 1.030, Urine Protein Negative, Urine Glucose (UA) Negative, Urine Ketones Negative, Urine Blood Negative, Urine Nitrate Negative, Urine Bilirubin Negative, Urine Urobilinogen 0.2, Ur Leukocyte Esterase Negative, Urine RBC None, Urine WBC None, Ur Squamous Epith Cells 3-5, Urine Bacteria Trace 04/27/25 18:39: WBC 12.7 H, RBC 4.25, Hgb 13.2, Hct 40.0, MCV 94.1, MCH 31.1, MCHC 33.0, RDW 13.8, Plt Count 304, MPV 9.6, Neut % (Auto) 74.8, Lymph % (Auto) 15.8, [place] % (Auto) 6.4, Eos % (Auto) 2.1, Baso % (Auto) 0.5, Neut # (Auto) 9.5 H, Lymph # (Auto) 2.0, [place] # (Auto) 0.8, Eos # (Auto) 0.3, Baso # (Auto) 0.1, Sodium 137, Potassium 4.3, Chloride 107, Carbon Dioxide 27, Anion Gap 7.3, BUN 17, Creatinine 0.60, Estimated Creat Clear 137, Estimated GFR 120, Est GFR ( Amer) 145, Glucose 91, Calcium 8.9, Magnesium 1.8, Total Bilirubin 0.1 L, AST 43 H, ALT 46, Alkaline Phosphatase 57, Troponin I < 0.01, Total Protein 7.2 D, Albumin 4.3, Globulin 2.9, Albumin/Globulin Ratio 1.5, Lipase 68, Serum HCG, Qual Negative, HCV Ab DONNIE w/Rflx PCR Qn Negative, HIV Ag/Ab Combo Qual Negative 04/27/25 18:55: SARS-CoV-2 (PCR) Not detected, Influenza A Untype (PCR) Not detected, Influenza Type B (PCR) Not detected 04/27/25 18:39 04/27/25 18:39 Orders (Tests/Meds): ED MEDICATIONS Discontinued Medications Generic Name Dose Route Start Last Admin Trade Name Rafaelq PRN Reason Stop Dose Admin Sodium Chloride 1,000 mls @ 999 mls/hr 04/27/25 18:52 04/27/25 21:36 Sod Chlor 0.9% 1000ml Bag IV 04/27/25 19:52 Infused .Q1H1M ONE Infusion Iopamidol 75 ml 04/27/25 19:42 04/27/25 19:44 Iopamidol-370 (76%);100ml Bottle IV 04/27/25 19:43 75 ml ONCE ONE Administration Ketorolac Tromethamine 30 mg 04/27/25 18:53 04/27/25 19:01 Ketorolac 30mg/Ml Vial IV 04/27/25 18:54 30 mg ONCE ONE Administration Sodium Chloride 10 ml 04/27/25 19:42 04/27/25 19:44 Sodium Chloride 0.9% 10ml Syr (Rad Only) IV 05/27/25 19:41 10 ml NEEDED PRN Administration Maintain IV Site ORDERS Category Date Time Status CT abdomen pelvis w con Stat Cat Scan 04/27/25 18:52 Completed CBC [Complete Blood Count Auto Diff] Stat Lab 04/27/25 18:39 Completed Comprehensive Metabolic Panel Stat Lab 04/27/25 18:39 Completed HCG Qualitative, Serum Stat Lab 04/27/25 18:39 Completed HIV Combo Stat Lab 04/27/25 18:39 Completed Hepatitis C Ab Qual. W/ RFX Stat Lab 04/27/25 18:39 Completed Lipase Stat Lab 04/27/25 18:39 Completed Magnesium Stat Lab 04/27/25 18:39 Completed Rapid PCR Covid and Flu A/B Stat Lab 04/27/25 18:55 Completed Trop I [Troponin I] Stat Lab 04/27/25 18:39 Completed Urinalysis and Microscopic Stat Lab 04/27/25 18:19 Completed Medical Decision Narrative: patient is a 25-year-old female presenting to the emergency department for evaluation of abdominal pain and bloating with nausea and vomiting. Patient is hemodynamically stable and nontoxic-appearing upon arrival, afebrile. Differential diagnosis includes gastritis, appendicitis, among others. Workup will be conducted with hematologic labs, specific imaging. Initial inventions include crystalloid bolus, analgesics. Initial workup reviewed by ok hematologic labs are remarkable for nonactionable. Imaging was remarkable for a 2 cm cystic on the left elbow which patient knows about. Patient's symptoms need to be additionally worked up by GI. Patient and I discussed this. Her mom is at bedside and said she would make sure that she would go. Patient will be discharged with close follow-up. Patient safe for discharge home. <Kelvin Presley MD - Last Filed: 04/27/25 19:42> Vital Signs: 04/27/25 18:27 04/27/25 20:00 04/27/25 21:33 Temperature 98.1 F 98.2 F 97.9 F Temperature Source Oral Oral Oral Pulse Rate 77 69 Pulse Rate [Right Radial] 97 H Respiratory Rate 15 16 16 Blood Pressure 115/77 97/62 L Blood Pressure [Right Arm] 119/76 Blood Pressure Mean [Right Arm] 90 Blood Pressure Source [Right Arm] Automatic Cuff Blood Pressure Position Supine Blood Pressure Position [Right Arm] Sitting 02 Sat by Pulse Oximetry 100 97 Oxygen Delivery Method Room Air Room Air Room Air Lab Data Lab Results 04/27/25 18:19: Urine Color Yellow, Urine Appearance Clear, Urine pH 5.5, Ur Specific [place] >= 1.030, Urine Protein Negative, Urine Glucose (UA) Negative, Urine Ketones Negative, Urine Blood Negative, Urine Nitrate Negative, Urine Bilirubin Negative, Urine Urobilinogen 0.2, Ur Leukocyte Esterase Negative, Urine RBC None, Urine WBC None, Ur Squamous Epith Cells 3-5, Urine Bacteria Trace 04/27/25 18:39: WBC 12.7 H, RBC 4.25, Hgb 13.2, Hct 40.0, MCV 94.1, MCH 31.1, MCHC 33.0, RDW 13.8, Plt Count 304, MPV 9.6, Neut % (Auto) 74.8, Lymph % (Auto) 15.8, [place] % (Auto) 6.4, Eos % (Auto) 2.1, Baso % (Auto) 0.5, Neut # (Auto) 9.5 H, Lymph # (Auto) 2.0, [place] # (Auto) 0.8, Eos # (Auto) 0.3, Baso # (Auto) 0.1, Sodium 137, Potassium 4.3, Chloride 107, Carbon Dioxide 27, Anion Gap 7.3, BUN 17, Creatinine 0.60, Estimated Creat Clear 137, Estimated GFR 120, Est GFR ( Amer) 145, Glucose 91, Calcium 8.9, Magnesium 1.8, Total Bilirubin 0.1 L, AST 43 H, ALT 46, Alkaline Phosphatase 57, Troponin I < 0.01, Total Protein 7.2 D, Albumin 4.3, Globulin 2.9, Albumin/Globulin Ratio 1.5, Lipase 68, Serum HCG, Qual Negative, HCV Ab DONNIE w/Rflx PCR Qn Negative, HIV Ag/Ab Combo Qual Negative 04/27/25 18:55: SARS-CoV-2 (PCR) Not detected, Influenza A Untype (PCR) Not detected, Influenza Type B (PCR) Not detected Orders (Tests/Meds): ED MEDICATIONS Discontinued Medications Generic Name Dose Route Start Last Admin Trade Name Freq PRN Reason Stop Dose Admin Sodium Chloride 1,000 mls @ 999 mls/hr 04/27/25 18:52 04/27/25 21:36 Sod Chlor 0.9% 1000ml Bag IV 04/27/25 19:52 Infused .Q1H1M ONE Infusion Iopamidol 75 ml 04/27/25 19:42 04/27/25 19:44 Iopamidol-370 (76%);100ml Bottle IV 04/27/25 19:43 75 ml ONCE ONE Administration Ketorolac Tromethamine 30 mg 04/27/25 18:53 04/27/25 19:01 Ketorolac 30mg/Ml Vial IV 04/27/25 18:54 30 mg ONCE ONE Administration Sodium Chloride 10 ml 04/27/25 19:42 04/27/25 19:44 Sodium Chloride 0.9% 10ml Syr (Rad Only) IV 05/27/25 19:41 10 ml NEEDED PRN Administration Maintain IV Site ORDERS Category Date Time Status CT abdomen pelvis w con Stat Cat Scan 04/27/25 18:52 Completed CBC [Complete Blood Count Auto Diff] Stat Lab 04/27/25 18:39 Completed Comprehensive Metabolic Panel Stat Lab 04/27/25 18:39 Completed HCG Qualitative, Serum Stat Lab 04/27/25 18:39 Completed HIV Combo Stat Lab 04/27/25 18:39 Completed Hepatitis C Ab Qual. W/ RFX Stat Lab 04/27/25 18:39 Completed Lipase Stat Lab 04/27/25 18:39 Completed Magnesium Stat Lab 04/27/25 18:39 Completed Rapid PCR Covid and Flu A/B Stat Lab 04/27/25 18:55 Completed Trop I [Troponin I] Stat Lab 04/27/25 18:39 Completed Urinalysis and Microscopic Stat Lab 04/27/25 18:19 Completed ECG Data Tracing #1: Independently interpreted by me rate 76, rhythm is regular, axis is normal, no ST elevation in anatomical contiguous leads, QTc 396. Critical Care <Lili Middleton (ED), DISC SANDER - Last Filed: 04/27/25 23:21> Critical Care Time Critical Care Time: No
[2025-04-27 19:13] LABS: Bacteria,Urine Trace /lpf
--- NOTE | 2025-04-27 19:35 | ECG_ITS ---
APPROVED REPORT Exam: Resting ECG HR:76 bpm ECG Measurements Heart Rate 76 AXES PA 178 P 68 QRSd 85 QRS 85 QT 366 T 69 QTc 396 Conclusion SINUS RHYTHM NORMAL ECG Electronically signed by : DAMIEN MARADIAGA, 04/28/2025 00:10:31
[2025-04-27] MEDS: IOPAMIDOL-370 (76%);100ML BOTTLE 75 ML IV (19:44)
[2025-04-27] MEDS: SODIUM CHLORIDE 0.9% 10ML SYR (RAD ONLY) 10 ML IV (19:44)
[2025-04-27 19:55] LABS: Hepatitis C Ab Qual. W/ RFX NEGATIVE (Negative)
[2025-04-27 20:00] VITALS: BP 115/77; PULSE 77; RESP 16; TEMP 36.8; O2SAT 97
--- NOTE | 2025-04-27 20:18 | PC.NURSE ---
Called lab to verify blood was in lab, [facility] stated they do
[2025-04-27 20:30] LABS: Hematocrit 40.0 % (37.0-47.0); Hemoglobin 13.2 g/dL (12.2-16.2); Immature Granulocytes % 0.4 %; Mean Corpuscular HGB Conc 33.0 g/dL (31.8-35.4); Mean Corpuscular Hemoglobin 31.1 pg (27.0-31.2); Mean Corpuscular Volume 94.1 fl (81-99); Nucleated Red Blood Cells % 0 %; Platelet Count 304 K/mm3 (142-424); Red Blood Count 4.25 M/mm3 (4.20-5.40); Red Cell Distribution Width-SD 47.9 fL; White Blood Count 12.7 K/mm3 (4.8-10.8)
[2025-04-27 20:31] LABS: Albumin Level 4.3 g/dl (3.5-5.0); Chloride 107 mmol/L (98-107); Potassium 4.3 mmoL/L (3.5-5.1); Sodium 137 mmol/L (136-145)
[2025-04-27 20:33] LABS: Blood Urea Nitrogen 17 mg/dl (7-17); Creatinine Clearance Estimated 137 mL/min (50-200); Creatinine,Serum 0.60 mg/dl (0.52-1.04); Estimated Glomerular Filt Rate 120 ml/min (>60); GFR (African American) 145 ML/MIN (>60)
[2025-04-27 20:34] LABS: Alanine Aminotransferase 46 U/L (12-78); Albumin/Globulin Ratio 1.5 (1.1-1.8); Alkaline Phosphatase 57 U/L (38-126); Anion Gap 7.3 mEq/L (5-15); Aspartate Amino Transferase 43 U/L (14-36); Calcium 8.9 mg/dl (8.4-10.2); Carbon Dioxide 27 mmol/L (22.0-30.0); Globulin 2.9 g/dL (1.3-3.2); Glucose 91 mg/dl (74-100); Lipase 68 U/L (23-300); Magnesium 1.8 mg/dl (1.6-2.3); Total Protein,Serum 7.2 g/dl (6.3-8.2)
[2025-04-27 20:43] LABS: HCG Qualitative, Serum Negative (Negative)
[2025-04-27 20:44] LABS: Bilirubin,Total 0.1 mg/dl (0.2-1.3)
[2025-04-27 20:48] LABS: Troponin I < 0.01 ng/ml (0.00-0.034)
[2025-04-27 21:33] VITALS: BP 97/62; PULSE 69; RESP 16; TEMP 36.6; O2SAT 100
== END 2025-04-27 21:39 | disposition home or self-care (01) ==
PROVIDERS: Nurse Practitioner; Emergency Provider Emergency Medicine
DX: R10.84 Generalized abdominal pain (principal); R14.0 Abdominal distension (gaseous); R11.0 Nausea; F17.210 Nicotine dependence, cigarettes, uncomplicated
CPT/HCPCS: 74177; 80053; 81001; 83690; 83735; 84484; 84703; 85025; 86803; 87389; 87636; 93005; 96365; 96375; 99284; 99285; J1885; J7030; Q9967